=== PATIENT | female | born 1945 | race Caucasian/White ===

== ENCOUNTER → 2017-12-08 10:22 | Outpatient (CLI) | payer OTHER, SELFPAY ==
[2017-12-08 12:25] LABS: Hep C Virus Ab w/Reflex Quant NEGATIVE s/c (NEGATIVE)
== END ==
PROVIDERS: PCP Physician Assistant; Visit Provider Internal Medicine Gastroenterology
DX: Z11.59 Encounter for screening for other viral diseases (principal)
CPT/HCPCS: 36415; 86803

== ENCOUNTER 2018-01-13 08:18 | Day surgery (SDC) | payer OTHER, SELFPAY ==
[2018-01-13] VITALS (9 sets, daily range): BP systolic 143–181; BP diastolic 80–91; PULSE 65–76; RESP 12–17; TEMP 36.2–36.7; O2SAT 96–100; BMI 19.5
[2018-01-13] MEDS: SODIUM CHLORIDE 0.9% 1,000 ML 21 ML IV (09:21)
[2018-01-13] MEDS: MIDAZOLAM 5 MG/5 ML VIAL IV (09:59)
[2018-01-13] MEDS: fentaNYL 250 MCG/5 ML INJ IV (09:59)
--- NOTE | 2018-01-13 10:03 | PM.OP.ENDO ---
Operative Date/Time/Diagnoses Date of procedure: 01/13/18 Time of procedure: 10:03 Pre-op diagnosis: See indication Procedure & Clinicians Study performed: Colonoscopy Indications: Family history of colon cancer. Last colonoscopy 8 years ago. Patient has only been off Plavix for 3-4 days. Surgeon: Sriram Tejeda Procedure Notes Procedure in detail: After informed consent was obtained the patient was placed in the left lateral decubitus position. The video colonoscope was placed in the rectum and slowly advanced to the cecum. Preparation was good. On slow withdrawal the mucosa was carefully examined. The scope was removed and the patient tolerated the procedure well. Blood loss none Complications none Sedation Fentanyl 100 mcg Versed 5 mg IV titration Total sedation time 12 min Findings 1. Normal colonoscopy to cecum without any polyps being seen. 2. Rare scattered sigmoid diverticulosis Patient should have follow-up colonoscopy in 5 years. She may restart her Plavix and the other medications that she is held today.
--- NOTE | 2018-02-03 16:47 | PM.HP.1 ---
History of Present Illness Chief complaint: colonoscopy [id number] Patient History Medical History Essential hypertension (Chronic) Hyperlipidemia (Chronic) Osteoporosis (Chronic) Cerebral aneurysm (Resolved) History of transient cerebral ischemia (Chronic 04/29/16) Obstructive sleep apnea syndrome (Chronic) Diverticulosis of large intestine without hemorrhage (Chronic) Mycobacterium avium complex (Chronic ~06/2015) Cystocele (Resolved 2004) Skin cancer (Resolved) Surgical History History of brain shunt (Resolved 05/2009) Hx of surgical procedure (Resolved 2004) S/P total abdominal hysterectomy and bilateral salpingo-oophorectomy (2004) Family & Social History Social History: household members none Tobacco & Substance use: Smoking Status Former smoker alcohol intake current Meds Home Medications Medication Instructions Recorded Confirmed Type aspirin 81 mg PO QDAY #0 03/07/16 01/25/18 History calcium carbonate [Calci-Chew] 500 mg PO BID #0 03/07/16 01/25/18 History lysine [L-Lysine] 500 mg PO BID #0 03/07/16 01/25/18 History multivitamin [Multiple Vitamins] 1 tab PO QDAY #0 03/07/16 01/25/18 History lisinopril 5 mg PO QDAY #90 tab 04/14/17 01/25/18 Rx alendronate 70 mg PO QWEEK #12 tab 05/04/17 01/25/18 Rx clopidogrel 75 mg PO QDAY #90 tab 05/11/17 01/25/18 Rx GLUCOSAMINE/CHONDROITIN SULF A 1 tab PO QDAY #0 10/14/17 01/25/18 History [Magnesium] 325 mg PO .see instructions #0 10/14/17 01/25/18 History metoprolol tartrate 25 mg tablet 12.5 mg PO ONCE #0 tab 12/02/17 01/25/18 History varicella-zoster glycoE [id number] 0.5 ml IM ONCE #1 each 01/25/18 Rx adj(PF) 50 mcg/0.5 mL IM susp, kit Allergies Allergy/AdvReac Type Severity Reaction Status Date / Time Iodinated Contrast- Oral and Allergy Intermediate HIVES Verified 01/25/18 14:08 IV Dye [IODINATED CONTRAST MEDIA - IV DYE] Sulfa (Sulfonamide Allergy Intermediate HIVES AND Verified 01/25/18 14:08 Antibiotics) HALLUCINATIONS [SULFA (SULFONAMIDE ANTIBIOTICS)] phenytoin [PHENYTOIN] Allergy Unknown PATIENT Verified 01/25/18 14:08 DOESN'T REMEMBER - THE ER TOLD ME I HAD A REACTION Exam Vital Signs (past 8 hours): Oxygen Delivery Method Room Air
== END 2018-01-13 11:17 | disposition home or self-care (01) ==
PROVIDERS: Family Provider Physician Assistant; PCP Physician Assistant; Visit Provider Internal Medicine Gastroenterology
PROC: 0DJD8ZZ Inspection of Lower Intestinal Tract, Via Natural or Artificial Opening Endoscopic (ICD-10-PCS; CPT 45378; principal; 2018-01-13 09:30)
DX: Z12.11 Encounter for screening for malignant neoplasm of colon (principal); Z80.0 Family history of malignant neoplasm of digestive organs; K57.30 Diverticulosis of large intestine without perforation or abscess without bleeding
CPT/HCPCS: G0105; J2250; J3010

== ENCOUNTER → 2018-01-29 07:07 | Outpatient (CLI) | payer OTHER, SELFPAY ==
[2018-01-29 08:22] LABS: Alanine Aminotransferase 23 IU/L (9-52); Albumin 4.4 g/dL (3.5-5.0); Albumin Globulin Ratio 1.7 (1.0-2.8); Alkaline Phosphatase 74 U/L (38-126); Aspartate Aminotransferase 28 IU/L (14-36); BUN Creatinine Ratio 28.3 (6-22); Bilirubin Total 0.5 mg/dL (0.2-1.3); Blood Urea Nitrogen 17 mg/dL (7-17); Calcium 9.5 mg/dL (8.4-10.2); Carbon Dioxide 29 mmol/L (22-32); Chloride 96 mmol/L (98-107); Cholesterol 210 mg/dL (140-199); Estimated Glomerular Filt Rate > 60.0 mL/min (>60); Globulin 2.6 g/dL (1.7-4.1); Glucose 98 mg/dL (80-110); HDL Cholesterol 53 mg/dL (40-60); HEMOLYSIS < 15 (0-50); LDL Cholesterol Calculated 137 mg/dL (<100); Sodium 135 mmol/L (137-145); Triglycerides 100 mg/dL (35-150)
[2018-01-29 09:05] LABS: Microalbumi Creatinin Ratio Ur 7.2 ug/mg CR (<30); Microalbumin Urine Random 0.9 mg/dL (0-1.6)
[2018-01-29 09:16] LABS: Vitamin D 25 Hydroxy (D3) 56.5 ng/mL (30.0-100.0)
== END ==
PROVIDERS: PCP Physician Assistant; Visit Provider Physician Assistant
DX: E78.5 Hyperlipidemia, unspecified (principal); I10 Essential (primary) hypertension; M81.0 Age-related osteoporosis without current pathological fracture
CPT/HCPCS: 36415; 80053; 80061; 82043; 82306; 82570

== ENCOUNTER → 2018-07-02 09:31 | Outpatient (CLI) | payer OTHER, SELFPAY ==
[2018-07-02 10:59] LABS: Alanine Aminotransferase 29 IU/L (9-52); Albumin 4.4 g/dL (3.5-5.0); Albumin Globulin Ratio 1.7 (1.0-2.8); Alkaline Phosphatase 63 U/L (38-126); Aspartate Aminotransferase 28 IU/L (14-36); Bilirubin Total 0.6 mg/dL (0.2-1.3); Blood Urea Nitrogen 15 mg/dL (7-17); Calcium 9.1 mg/dL (8.4-10.2); Carbon Dioxide 26 mmol/L (22-32); Chloride 96 mmol/L (98-107); Cholesterol 201 mg/dL (140-199); Estimated Glomerular Filt Rate > 60.0 mL/min (>60); Globulin 2.6 g/dL (1.7-4.1); Glucose 90 mg/dL (80-110); HDL Cholesterol 61 mg/dL (40-60); HEMOLYSIS < 15 (0-50); LDL Cholesterol Calculated 126 mg/dL (<100); Potassium 4.2 mmol/L (3.4-5.1); Sodium 132 mmol/L (137-145); Triglycerides 72 mg/dL (35-150)
[2018-07-02 11:07] LABS: Creatinine Urine Random 91.2 mg/dL
[2018-07-02 11:12] LABS: Microalbumi Creatinin Ratio Ur 6.5 ug/mg CR (<30); Microalbumin Urine Random < 0.6 mg/dL (0-1.6)
== END ==
PROVIDERS: PCP Physician Assistant; Visit Provider Physician Assistant
DX: E78.5 Hyperlipidemia, unspecified (principal); I10 Essential (primary) hypertension
CPT/HCPCS: 36415; 80053; 80061; 82043; 82570

== ENCOUNTER 2018-07-22 12:42 | Emergency (ER) | payer OTHER, SELFPAY ==
[2018-07-22] VITALS (17 sets, daily range): BP systolic 150–196; BP diastolic 73–102; PULSE 82–107; RESP 14–20; TEMP 36.3; O2SAT 93–100; BMI 19.5
[2018-07-22] MEDS: ONDANSETRON 4 MG/2 ML INJ IV (12:39)
--- NOTE | 2018-07-22 12:42 | DI.CT.S_ITS ---
PROCEDURE: CT CERVICAL SPINE WO CON INDICATIONS: trauma TECHNIQUE: Noncontrast 3 mm thick sections acquired from the skull base to the T4 level. Sagittal and coronal reformats were then constructed. For radiation dose reduction, the following was used: automated exposure control, adjustment of mA and/or kV according to patient size. COMPARISON: None. FINDINGS: Image quality: Excellent. Bones: There is mild compression fracture of T3, which could be acute. Mild loss of vertebral body height at C4 and C5 is likely chronic. There is grade 1 anterolisthesis of C4 on C5 and C5 on C6. Degenerative disc disease is present, severe at C3-C4, moderate C5-C6 and C6-C7. There is bilateral uncovertebral hypertrophy, severe at C5-C6 and C6-C7 bilaterally. Visualized superior ribs are intact. Soft tissues: Prevertebral soft tissues are normal in thickness. No paravertebral hematomas. No apical pneumothoraces. IMPRESSION: 1. Mild compression fracture of T3, which could be acute. 2. Mild old compression fracture of C4 and C5. 3. Degenerative disc and facet disease as described. Dictated by: Janna Dominguez M.D. on 07/22/2018 at 13:33 Approved by: Janna Dominguez M.D. on 07/22/2018 at 13:37
--- NOTE | 2018-07-22 12:47 | ED.FALL ---
HPI - Fall General Chief Complaint: Fall Stated Complaint: Fall Time Seen by Provider: 07/22/18 12:47 Source: patient Mode of arrival: ambulatory Limitations: no limitations History of Present Illness HPI Narrative: 73-year-old female nonsmoker with history of recent fall with head injury on Plavix presents to the emergency department by EMS for evaluation of worsening headache with persistent vomiting since her fall. This morning she was out walking her dog and slipped on the ice and struck her head. She denies any other injury. She denies any loss of consciousness or anticoagulation. 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 She denies any back or extremity pain. MD complaint: fall Onset (ago): hour(s) Fall from: standing Fall witnessed: no Place fall occurred: home Loss of consciousness: none Prolonged down time: no Symptoms prior to fall: none Context: tripped/slipped Location of injury: head Severity: moderate Associated symptoms (after fall): denies Related Data Allergies Allergy/AdvReac Type Severity Reaction Status Date / Time Sulfa (Sulfonamide Allergy Verified 07/22/18 13:53 Antibiotics) Review of Systems Constitutional Denies chills, Denies fever(s), Denies lethargy and Denies weakness Eyes Denies change in vision, Denies eye discharge, Denies irritation and Denies loss of vision ENT Ears, Nose, Mouth, and Throat: Denies change in voice, Reports neck pain and Denies sore throat Cardiovascular Denies chest pain, Denies irregular heart rhythm, Denies lightheadedness, Denies palpitations, Denies dyspnea, Denies dyspnea on exertion and Denies orthopnea Respiratory Denies cough, Denies dyspnea, Denies dyspnea on exertion and Denies wheezing Gastrointestinal Gastrointestinal: Denies abdominal pain, Denies change in bowel habits, Denies diarrhea, Reports nausea and Reports vomiting Musculoskeletal Reports neck pain Integumentary/Breasts Denies pruritus, Denies erythema, Denies rash and Denies wounds Neurologic Reports confusion, Denies loss of vision and Denies weakness Psychiatric Denies anxiety, Reports confusion, Denies depression, Denies homicidal ideation and Denies suicidal ideation Endocrine Denies palpitations Hematologic/Lymphatic Denies easy bruising Allergic/Immunologic Denies wheezing Exam Narrative Exam Narrative: GENERAL: 73-year-old female in obvious distress, eyes closed complaining of headache, arousable to voice HEAD: Occipital tenderness, no fracture or laceration EYES: Pupils equal round and reactive. Extraocular motions intact. No scleral icterus. No injection or drainage. ENT: Nose without bleeding, purulent drainage or septal hematoma. Throat without erythema, tonsillar hypertrophy or exudate. Uvula midline. Airway patent. NECK: Trachea midline. No JVD or lymphadenopathy. Supple, nontender, no meningeal signs. CARDIOVASCULAR: Regular rate and rhythm without murmurs, gallops, or rubs. RESPIRATORY: Clear to auscultation. Breath sounds equal bilaterally. No wheezes, rales, or rhonchi. GASTROINTESTINAL: Abdomen soft, non-tender, nondistended. No hepato-splenomegaly, or palpable masses. No guarding. EXTREMITIES: No clubbing, cyanosis, or edema. No joint tenderness, effusion, or edema noted. BACK: Nontender without deformity or crepitance. No flank tenderness. NEURO: AOx3. SKIN: No rash or erythema. Initial Vital Signs Initial Vital Signs: Vital Signs Temperature 97.4 F L 07/22/18 12:39 Pulse Rate 88 07/22/18 12:39 Respiratory Rate 16 07/22/18 12:39 Blood Pressure 185/88 H 07/22/18 12:39 Pulse Oximetry 98 07/22/18 12:39 Procedures Intubation Time out performed: Yes sedative: Etomidate Mg Given: 13 paralytic: Rocuronium Mg Given: 45 Laryngoscope: other (Glidescope) Assist Device Used: Bougie ET Tube Size: 7.5 ET Tube Uncuffed: Yes Tube Secured Depth (cm): 22 Tube Secured Location: teeth Tube Placement Confirmation: Visualized tube passing through cords, Equal breath sounds bilaterally, No breath sounds over epigastrium and Confirmation by capnometry Patient Tolerated Procedure: Well Intubation Complications: none Scores GCS Mel coma scale eye opening: To sound [place] coma scale verbal response: Confused [place] coma scale motor response: Obey commands Mel coma scale total score: 13 Course Course Narrative: Skylar [phone] Angelique Puga [phone] Orders Ordered: ED Orders 07/22/18 12:35 Basic Metabolic Panel Stat Complete Blood Count AUTO DIFF Stat Partial Thromboplastin Time Stat Prothrombin Time INR Stat 07/22/18 12:42 CT head/brain wo con Stat 07/22/18 12:53 XR chest 1V Stat XR pelvis 1-2V Stat EKG-12 Lead Stat 07/22/18 13:07 CT cervical spine wo con Stat 07/22/18 14:23 XR chest 1V Stat Nicardipine HCl 25 mg/ Sodium (Chloride) 250 mls @ 50 mls/hr IV TITRATE BREN; Protocol Last Titration: 07/22/18 13:42 Dose: 0 mg/hr, 0 mls/hr Admin: 07/22/18 13:35 Dose: 5 mg/hr, 50 mls/hr Ondansetron HCl (Zofran) 4 mg IV Q4HR PRN PRN Reason: Nausea And Vomiting Last Admin: 07/22/18 12:39 Dose: 4 mg Discontinued Medications Levetiracetam 1,000 mg/ Sodium (Chloride) 110 mls @ 440 mls/hr IV NOW ONE Stop: 07/22/18 13:22 Last Infusion: 07/22/18 13:53 Dose: 0 mls/hr Admin: 07/22/18 13:38 Dose: 440 mls/hr Reevaluation(s) Reevaluation #1: called to see patient with change in mental status, possible seizure activity but rapid return to baseline (no post ictal) patient to Trauma [place]. [place], nicardipine ordered and plan to intubate. Images pushed, [place] [facility] Time: 13:32 Consultations Consultation #1: Dr. Valentin [place] consulted. Discussed RSI meds (etomidate vs. ketamine: recommend etomidate for ICP), hypertonic saline or mannitol (will refer to Neurosurg), also recommend holding nicardipine until after intubation with goal SBP 160ish Vital Signs - 8 hr 07/22/18 12:39 07/22/18 13:13 07/22/18 13:18 Temperature 97.4 F L Pulse Rate 88 84 92 H Respiratory Rate 16 17 18 Blood Pressure 185/88 H Blood Pressure [Left Arm] 178/81 H 178/81 H Pulse Oximetry 98 100 100 07/22/18 13:35 07/22/18 13:42 07/22/18 13:54 Temperature Pulse Rate 94 H 92 H Respiratory Rate 18 15 Blood Pressure Blood Pressure [Left Arm] 185/90 H 162/85 H 150/73 H Pulse Oximetry 94 93 07/22/18 14:00 07/22/18 14:33 Temperature Pulse Rate 101 H 94 H Respiratory Rate 18 14 Blood Pressure Blood Pressure [Left Arm] 163/79 H 189/101 H Pulse Oximetry 100 100 - Fall Lab Data Result diagrams: 07/22/18 12:35 07/22/18 12:35 Lab Results 07/22/18 07/22/18 07/22/18 Range/Units 12:35 12:35 12:35 WBC 8.6 (4.5-11.0) X10^3/uL RBC 4.99 (4.0-5.2) X10^6/uL Hgb 15.1 (12.0-16.0) g/dL Hct 44.6 (36-46) % MCV 89.4 (80-100) fL MCH 30.3 (26-34) PG MCHC 33.9 (30-36) % RDW 13.5 (11.6-14.8) % Plt Count 262 (150-400) X10^3/uL Neut % (Auto) 71.2 (50-75) % Lymph % (Auto) 20.5 L (25-40) % [place] % (Auto) 7.0 (3-14) % Eos % (Auto) 0.5 L (2-4) % Baso % (Auto) 0.8 (0-2) % Neut # (Auto) 6100 (8558-9513) /uL Lymph # (Auto) 1800 (6711-9151) /uL [place] # (Auto) 600 (0-900) /uL Eos # (Auto) 0 (0-450) /uL Baso # (Auto) 100 (0-100) /uL PT 10.9 (10.1-12.7) SECONDS INR 1.0 (0.9-1.3) APTT 25 L (26.4-36.2) SECONDS Sodium 133 L (137-145) mmol/L Potassium 3.5 (3.4-5.1) mmol/L Chloride 96 L (98-107) mmol/L Carbon Dioxide 22 (22-32) mmol/L BUN 18 H (7-17) mg/dL Creatinine 0.60 (0.52-1.04) mg/dL Estimated GFR > 60.0 (>60) mL/min BUN/Creatinine Ratio 30.0 H (6-22) Glucose 127 H (80-110) mg/dL Calcium 9.8 (8.4-10.2) mg/dL Imaging Data CT scan - head: Radiologist's impression: Shelley Pires 73 F [address] [address] [address] Scan Report Signed Patient: Shelley PiresMR#: [id number] : 5Acct:[id number] Age/Sex: 73 / FDate of Service: 07/22/18 Loc: ED Accession Number: [id number] Procedure: CT cervical spine wo con Ordering Provider: Winston Anaya D.O. PROCEDURE: CT HEAD/BRAIN WO CON INDICATIONS: trauma TECHNIQUE: Noncontrast 4.5 mm thick angled axial sections acquired from the foramen magnum to the vertex, with coronal and sagittal reformats. For radiation dose reduction, the following was used: automated exposure control, adjustment of mA and/or kV according to patient size. COMPARISON: [facility], CT, CT CERVICAL SPINE WO CON, 07/22/2018, 12:35. FINDINGS: Image quality: Excellent. CSF spaces: A large acute epidural hematoma is present over the right frontal lobe measuring 2.7 cm in thickness and is 6.6 cm longitudinally. In addition, acute subcutaneous hematoma is seen over the right cerebral convexity, measuring up to 11 mm. subdural blood is also present within the interhemispheric fissure, right sylvian fissure and along the right tentorium. There is mass effect of the right hemisphere with 8mm midline shift. Basal cisterns are partially effaced. There is a ventricular shunt catheter entering through the left frontal area with the tip near foramen of Hirsch. There is effacement of lateral ventricles, suggesting over shunting. Brain: No intracranial masses. There is mild cerebral volume loss for age, with resultant ventricular and sulcal prominence. There are periventricular and deep white matter chronic small vessel ischemic changes. Skull and face: Postsurgical changes are noted in right frontal ovarian and within the suprasellar cistern. No acute skull fracture is identified. Sinuses: Visualized sinuses and mastoids are clear. IMPRESSION: 1. A large acute epidural hematoma in the right frontal area. 2. Acute subdural hematoma over the right convexity measuring up to 11 mm. Subdural blood is also present within the interhemispheric fissure, right sylvian fissure and tentorium. 3. There is mass effect and 8 mm leftward midline shift. 4. There is a ventricular shunt catheter entering through the right frontal region. There is effacement of cerebral ventricles suggesting over shunting. Recommend clinical correlation. The result was discussed with Dr. Rubi in ER on 07/22/2018 at 1320 hours. Dictated by: Janna Dominguez M.D. on 07/22/2018 at 13:19 Approved by: Janna Dominguez M.D. on 07/22/2018 at 13:33 CT C Spine: Radiologist's impression: [place] [address] CT Scan Report Signed Patient: Shelley PiresMR#: [id number] : 5Acct:[id number] Age/Sex: 73 / FDate of Service: 07/22/18 Loc: ED Accession Number: [id number] Procedure: CT head/brain wo con Ordering Provider: Winston Anaya D.O. PROCEDURE: CT CERVICAL SPINE WO CON INDICATIONS: trauma TECHNIQUE: Noncontrast 3 mm thick sections acquired from the skull base to the T4 level. Sagittal and coronal reformats were then constructed. For radiation dose reduction, the following was used: automated exposure control, adjustment of mA and/or kV according to patient size. COMPARISON: None. FINDINGS: Image quality: Excellent. Bones: There is mild compression fracture of T3, which could be acute. Mild loss of vertebral body height at C4 and C5 is likely chronic. There is grade 1 anterolisthesis of C4 on C5 and C5 on C6. Degenerative disc disease is present, severe at C3-C4, moderate C5-C6 and C6-C7. There is bilateral uncovertebral hypertrophy, severe at C5-C6 and C6-C7 bilaterally. Visualized superior ribs are intact. Soft tissues: Prevertebral soft tissues are normal in thickness. No paravertebral hematomas. No apical pneumothoraces. IMPRESSION: 1. Mild compression fracture of T3, which could be acute. 2. Mild old compression fracture of C4 and C5. 3. Degenerative disc and facet disease as described. Dictated by: Janna Dominguez M.D. on 07/22/2018 at 13:33 Critical Care Time Critical Care Time: Yes Total Critical Care Time: 30 Attestation: The high probability of a clinically significant, sudden or life threatening deterioration of the [neurologic] system(s) required my full and direct attention, intervention and personal management. The aggregate critical care time was [30] minutes. This time is in addition to time spent performing reported procedures but includes the following: [x] Data Review and interpretation [x] Patient assessment and monitoring of vital signs [x] Documentation [x] Medication orders and management Discharge Plan Departure Patient Disposition: [facility] Clinical Impression: Epidural hematoma
--- NOTE | 2018-07-22 12:53 | DI.RAD.S_ITS ---
PROCEDURE: XR CHEST 1V INDICATIONS: fall TECHNIQUE: One view of the chest was acquired. COMPARISON: None. FINDINGS: Surgical changes and devices: Tubing of a probable ventriculoperitoneal shunt overlies the left hemithorax.. Lungs and pleura: Lungs are hyperinflated but clear. No pleural effusions or pneumothorax. Mediastinum: Mediastinal contours appear normal. Heart size is normal. Bones and chest wall: No suspicious bony lesions. Overlying soft tissues appear unremarkable. IMPRESSION: 1. No evidence of acute trauma to the chest. 2. Mild pulmonary hyperinflation. 3. IT SYSTEMS ADMINISTRATOR shunt in place. Dictated by: Jaki Salvador M.D. on 07/22/2018 at 13:12 Approved by: Jaki Salvador M.D. on 07/22/2018 at 13:13
--- NOTE | 2018-07-22 12:53 | DI.RAD.S_ITS ---
PROCEDURE: XR PELVIS 1-2V INDICATIONS: fall with pain TECHNIQUE: Single view(s) of the pelvis acquired. COMPARISON: [facility], CR, XR CHEST 1V, 07/22/2018, 12:58. FINDINGS: Bones: No fractures or dislocations. No suspicious bony lesions. Moderate degenerative changes at the right L5-S1 facet joint. Soft tissues: Tubing of the CHIROPRACTIC NEUROLOGIST shunt is coiled loosely in the pelvis. Visualized bowel gas pattern is normal. No suspicious soft tissue calcifications. IMPRESSION: 1. No radiographic evidence of acute trauma to the pelvis. 2. CHIROPRACTIC NEUROLOGIST shunt tubing in expected position. Dictated by: Jaki Salvador M.D. on 07/22/2018 at 13:14 Approved by: Jaki Salvador M.D. on 07/22/2018 at 13:15
[2018-07-22 13:03] LABS: Add Manual Diff / Slide Review NO; Basophils Absolute Auto 100 /uL (0-100); Basophils Percent Auto 0.8 % (0-2); Eosinophils Absolute Auto 0 /uL (0-450); Eosinophils Percent Auto 0.5 % (2-4); Hematocrit 44.6 % (36-46); Hemoglobin 15.1 g/dL (12.0-16.0); Lymphocytes Absolute Auto 1800 /uL (1100-4500); Lymphocytes Percent Auto 20.5 % (25-40); Mean Corpuscular HGB Conc 33.9 % (30-36); Mean Corpuscular Hemoglobin 30.3 PG (26-34); Mean Corpuscular Volume 89.4 fL (80-100); Monocytes Absolute Auto 600 /uL (0-900); Neutrophils Absolute Auto 6100 /uL (1500-7000); Neutrophils Percent Auto 71.2 % (50-75); Platelet Count 262 X10^3/uL (150-400); Red Blood Cell Count 4.99 X10^6/uL (4.0-5.2); Red Cell Distribution Width 13.5 % (11.6-14.8); White Blood Cell Count 8.6 X10^3/uL (4.5-11.0)
--- NOTE | 2018-07-22 13:07 | DI.CT.S_ITS ---
PROCEDURE: CT HEAD/BRAIN WO CON INDICATIONS: trauma TECHNIQUE: Noncontrast 4.5 mm thick angled axial sections acquired from the foramen magnum to the vertex, with coronal and sagittal reformats. For radiation dose reduction, the following was used: automated exposure control, adjustment of mA and/or kV according to patient size. COMPARISON: [facility], CT, CT CERVICAL SPINE WO CON, 07/22/2018, 12:35. FINDINGS: Image quality: Excellent. CSF spaces: A large acute epidural hematoma is present over the right frontal lobe measuring 2.7 cm in thickness and is 6.6 cm longitudinally. In addition, acute subcutaneous hematoma is seen over the right cerebral convexity, measuring up to 11 mm. subdural blood is also present within the interhemispheric fissure, right sylvian fissure and along the right tentorium. There is mass effect of the right hemisphere with 8mm midline shift. Basal cisterns are partially effaced. There is a ventricular shunt catheter entering through the left frontal area with the tip near foramen of Hirsch. There is effacement of lateral ventricles, suggesting over shunting. Brain: No intracranial masses. There is mild cerebral volume loss for age, with resultant ventricular and sulcal prominence. There are periventricular and deep white matter chronic small vessel ischemic changes. Skull and face: Postsurgical changes are noted in right frontal ovarian and within the suprasellar cistern. No acute skull fracture is identified. Sinuses: Visualized sinuses and mastoids are clear. IMPRESSION: 1. A large acute epidural hematoma in the right frontal area. 2. Acute subdural hematoma over the right convexity measuring up to 11 mm. Subdural blood is also present within the interhemispheric fissure, right sylvian fissure and tentorium. 3. There is mass effect and 8 mm leftward midline shift. 4. There is a ventricular shunt catheter entering through the right frontal region. There is effacement of cerebral ventricles suggesting over shunting. Recommend clinical correlation. The result was discussed with Dr. Rubi in ER on 07/22/2018 at 1320 hours. Dictated by: Janna Dominguez M.D. on 07/22/2018 at 13:19 Approved by: Janna Dominguez M.D. on 07/22/2018 at 13:33
[2018-07-22 13:10] LABS: Prothrombin Time 10.9 SECONDS (10.1-12.7)
[2018-07-22 13:13] LABS: PTT Partial Thromboplastin Tim 25 SECONDS (26.4-36.2)
[2018-07-22 13:14] LABS: Blood Urea Nitrogen 18 mg/dL (7-17); Calcium 9.8 mg/dL (8.4-10.2); Carbon Dioxide 22 mmol/L (22-32); Chloride 96 mmol/L (98-107); Estimated Glomerular Filt Rate > 60.0 mL/min (>60); Glucose 127 mg/dL (80-110); HEMOLYSIS 48 (0-50); Potassium 3.5 mmol/L (3.4-5.1); Sodium 133 mmol/L (137-145)
--- NOTE | 2018-07-22 13:17 | PC.NURSE ---
cervical collar applied, moving all ext , post application, then to ct. pt continue to have nausea, , repeat zofran 4mg iv given at 1248.
--- NOTE | 2018-07-22 13:18 | PC.NURSE ---
remain alert and awake, report of frontal headache, with nausea, denies visual changes, moving all ext.
--- NOTE | 2018-07-22 13:29 | ED_ITS ---
HPI - Fall General Chief Complaint: Fall Stated Complaint: Fall Time Seen by Provider: 07/22/18 12:47 Source: patient Mode of arrival: ambulatory Limitations: no limitations History of Present Illness HPI Narrative: 73-year-old female nonsmoker with history of recent fall with head injury on Plavix presents to the emergency department by EMS for evaluation of worsening headache with persistent vomiting since her fall. This morning she was out walking her dog and slipped on the ice and struck her head. She denies any other injury. She denies any loss of consciousness or anticoagulation. 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 She denies any back or extremity pain. MD complaint: fall Onset (ago): hour(s) Fall from: standing Fall witnessed: no Place fall occurred: home Loss of consciousness: none Prolonged down time: no Symptoms prior to fall: none Context: tripped/slipped Location of injury: head Severity: moderate Associated symptoms (after fall): denies Related Data Allergies Allergy/AdvReac Type Severity Reaction Status Date / Time Sulfa (Sulfonamide Allergy Verified 07/22/18 13:53 Antibiotics) Review of Systems Constitutional Denies chills, Denies fever(s), Denies lethargy and Denies weakness Eyes Denies change in vision, Denies eye discharge, Denies irritation and Denies loss of vision ENT Ears, Nose, Mouth, and Throat: Denies change in voice, Reports neck pain and Denies sore throat Cardiovascular Denies chest pain, Denies irregular heart rhythm, Denies lightheadedness, Denies palpitations, Denies dyspnea, Denies dyspnea on exertion and Denies orthopnea Respiratory Denies cough, Denies dyspnea, Denies dyspnea on exertion and Denies wheezing Gastrointestinal Gastrointestinal: Denies abdominal pain, Denies change in bowel habits, Denies diarrhea, Reports nausea and Reports vomiting Musculoskeletal Reports neck pain Integumentary/Breasts Denies pruritus, Denies erythema, Denies rash and Denies wounds Neurologic Reports confusion, Denies loss of vision and Denies weakness Psychiatric Denies anxiety, Reports confusion, Denies depression, Denies homicidal ideation and Denies suicidal ideation Endocrine Denies palpitations Hematologic/Lymphatic Denies easy bruising Allergic/Immunologic Denies wheezing Exam Narrative Exam Narrative: GENERAL: 73-year-old female in obvious distress, eyes closed complaining of headache, arousable to voice HEAD: Occipital tenderness, no fracture or laceration EYES: Pupils equal round and reactive. Extraocular motions intact. No scleral icterus. No injection or drainage. ENT: Nose without bleeding, purulent drainage or septal hematoma. Throat without erythema, tonsillar hypertrophy or exudate. Uvula midline. Airway patent. NECK: Trachea midline. No JVD or lymphadenopathy. Supple, nontender, no meningeal signs. CARDIOVASCULAR: Regular rate and rhythm without murmurs, gallops, or rubs. RESPIRATORY: Clear to auscultation. Breath sounds equal bilaterally. No wheezes, rales, or rhonchi. GASTROINTESTINAL: Abdomen soft, non-tender, nondistended. No hepato- splenomegaly, or palpable masses. No guarding. EXTREMITIES: No clubbing, cyanosis, or edema. No joint tenderness, effusion, or edema noted. BACK: Nontender without deformity or crepitance. No flank tenderness. NEURO: AOx3. SKIN: No rash or erythema. Initial Vital Signs Initial Vital Signs: Vital Signs Temperature 97.4 F L 07/22/18 12:39 Pulse Rate 88 07/22/18 12:39 Respiratory Rate 16 07/22/18 12:39 Blood Pressure 185/88 H 07/22/18 12:39 Pulse Oximetry 98 07/22/18 12:39 Procedures Intubation Time out performed: Yes sedative: Etomidate Mg Given: 13 paralytic: Rocuronium Mg Given: 45 Laryngoscope: other (Glidescope) Assist Device Used: Bougie ET Tube Size: 7.5 ET Tube Uncuffed: Yes Tube Secured Depth (cm): 22 Tube Secured Location: teeth Tube Placement Confirmation: Visualized tube passing through cords, Equal breath sounds bilaterally, No breath sounds over epigastrium and Confirmation by capnometry Patient Tolerated Procedure: Well Intubation Complications: none Scores GCS Mel coma scale eye opening: To sound Mel coma scale verbal response: Confused Mel coma scale motor response: Obey commands Raphine coma scale total score: 13 Course Course Narrative: Skylar [phone] Angelique Puga [phone] Orders Ordered: ED Orders 07/22/18 12:35 Basic Metabolic Panel Stat Complete Blood Count AUTO DIFF Stat Partial Thromboplastin Time Stat Prothrombin Time INR Stat 07/22/18 12:42 CT head/brain wo con Stat 07/22/18 12:53 XR chest 1V Stat XR pelvis 1-2V Stat EKG-12 Lead Stat 07/22/18 13:07 CT cervical spine wo con Stat 07/22/18 14:23 XR chest 1V Stat Nicardipine HCl 25 mg/ Sodium (Chloride) 250 mls @ 50 mls/hr IV TITRATE BREN; Protocol Last Titration: 07/22/18 13:42 Dose: 0 mg/hr, 0 mls/hr Admin: 07/22/18 13:35 Dose: 5 mg/hr, 50 mls/hr Ondansetron HCl (Zofran) 4 mg IV Q4HR PRN PRN Reason: Nausea And Vomiting Last Admin: 07/22/18 12:39 Dose: 4 mg Discontinued Medications Levetiracetam 1,000 mg/ Sodium (Chloride) 110 mls @ 440 mls/hr IV NOW ONE Stop: 07/22/18 13:22 Last Infusion: 07/22/18 13:53 Dose: 0 mls/hr Admin: 07/22/18 13:38 Dose: 440 mls/hr Reevaluation(s) Reevaluation #1: called to see patient with change in mental status, possible seizure activity but rapid return to baseline (no post ictal) patient to Trauma [place]. [place], nicardipine ordered and plan to intubate. Images pushed, [facility] Time: 13:32 Consultations Consultation #1: Dr. Valentin ([facility]) consulted. Discussed RSI meds (etomidate vs. ketamine: recommend etomidate for ICP), hypertonic saline or mannitol (will refer to Neurosurg), also recommend holding nicardipine until after intubation with goal SBP 160ish Vital Signs - 8 hr 07/22/18 12:39 07/22/18 13:13 07/22/18 13:18 Temperature 97.4 F L Pulse Rate 88 84 92 H Respiratory Rate 16 17 18 Blood Pressure 185/88 H Blood Pressure [Left Arm] 178/81 H 178/81 H Pulse Oximetry 98 100 100 07/22/18 13:35 07/22/18 13:42 07/22/18 13:54 Temperature Pulse Rate 94 H 92 H Respiratory Rate 18 15 Blood Pressure Blood Pressure [Left Arm] 185/90 H 162/85 H 150/73 H Pulse Oximetry 94 93 07/22/18 14:00 07/22/18 14:33 Temperature Pulse Rate 101 H 94 H Respiratory Rate 18 14 Blood Pressure Blood Pressure [Left Arm] 163/79 H 189/101 H Pulse Oximetry 100 100 - Fall Lab Data Result diagrams: 07/22/18 12:35 07/22/18 12:35 Lab Results 07/22/18 07/22/18 07/22/18 Range/Units 12:35 12:35 12:35 WBC 8.6 (4.5-11.0) X10^3/uL RBC 4.99 (4.0-5.2) X10^6/uL Hgb 15.1 (12.0-16.0) g/dL Hct 44.6 (36-46) % MCV 89.4 (80-100) fL MCH 30.3 (26-34) PG MCHC 33.9 (30-36) % RDW 13.5 (11.6-14.8) % Plt Count 262 (150-400) X10^3/uL Neut % (Auto) 71.2 (50-75) % Lymph % (Auto) 20.5 L (25-40) % Vernon % (Auto) 7.0 (3-14) % Eos % (Auto) 0.5 L (2-4) % Baso % (Auto) 0.8 (0-2) % Neut # (Auto) 6100 (8182-4597) /uL Lymph # (Auto) 1800 (9801-1740) /uL Vernon # (Auto) 600 (0-900) /uL Eos # (Auto) 0 (0-450) /uL Baso # (Auto) 100 (0-100) /uL PT 10.9 (10.1-12.7) SECONDS INR 1.0 (0.9-1.3) APTT 25 L (26.4-36.2) SECONDS Sodium 133 L (137-145) mmol/L Potassium 3.5 (3.4-5.1) mmol/L Chloride 96 L (98-107) mmol/L Carbon Dioxide 22 (22-32) mmol/L BUN 18 H (7-17) mg/dL Creatinine 0.60 (0.52-1.04) mg/dL Estimated GFR > 60.0 (>60) mL/min BUN/Creatinine Ratio 30.0 H (6-22) Glucose 127 H (80-110) mg/dL Calcium 9.8 (8.4-10.2) mg/dL Imaging Data CT scan - head: Radiologist's impression: Shelley Pires 73 F [address] [address] [address] Scan Report Signed Patient: Shelley PiresMR#: [id number] : 5Acct:[id number] Age/Sex: 73 / FDate of Service: 07/22/18 Loc: ED Accession Number: [id number] Procedure: CT cervical spine wo con Ordering Provider: Winston Anaya D.O. PROCEDURE: CT HEAD/BRAIN WO CON INDICATIONS: trauma TECHNIQUE: Noncontrast 4.5 mm thick angled axial sections acquired from the foramen magnum to the vertex, with coronal and sagittal reformats. For radiation dose reduction, the following was used: automated exposure control, adjustment of mA and/or kV according to patient size. COMPARISON: [facility], CT, CT CERVICAL SPINE WO CON, 07/22/2018, 12:35. FINDINGS: Image quality: Excellent. CSF spaces: A large acute epidural hematoma is present over the right frontal lobe measuring 2.7 cm in thickness and is 6.6 cm longitudinally. In addition, acute subcutaneous hematoma is seen over the right cerebral convexity, measuring up to 11 mm. subdural blood is also present within the interhemispheric fissure, right sylvian fissure and along the right tentorium. There is mass effect of the right hemisphere with 8mm midline shift. Basal cisterns are partially effaced. There is a ventricular shunt catheter entering through the left frontal area with the tip near foramen of Hirsch. There is effacement of lateral ventricles, suggesting over shunting. Brain: No intracranial masses. There is mild cerebral volume loss for age, with resultant ventricular and sulcal prominence. There are periventricular and deep white matter chronic small vessel ischemic changes. Skull and face: Postsurgical changes are noted in right frontal ovarian and within the suprasellar cistern. No acute skull fracture is identified. Sinuses: Visualized sinuses and mastoids are clear. IMPRESSION: 1. A large acute epidural hematoma in the right frontal area. 2. Acute subdural hematoma over the right convexity measuring up to 11 mm. Subdural blood is also present within the interhemispheric fissure, right sylvian fissure and tentorium. 3. There is mass effect and 8 mm leftward midline shift. 4. There is a ventricular shunt catheter entering through the right frontal region. There is effacement of cerebral ventricles suggesting over shunting. Recommend clinical correlation. The result was discussed with Dr. Rubi in ER on 07/22/2018 at 1320 hours. Dictated by: Janna Dominguez M.D. on 07/22/2018 at 13:19 Approved by: Janna Dominguez M.D. on 07/22/2018 at 13:33 CT C Spine: Radiologist's impression: [place] [address] CT Scan Report Signed Patient: Shelley PiresMR#: [id number] : 5Acct:[id number] Age/Sex: 73 / FDate of Service: 07/22/18 Loc: ED Accession Number: [id number] Procedure: CT head/brain wo con Ordering Provider: Winston Anaya D.O. PROCEDURE: CT CERVICAL SPINE WO CON INDICATIONS: trauma TECHNIQUE: Noncontrast 3 mm thick sections acquired from the skull base to the T4 level. Sagittal and coronal reformats were then constructed. For radiation dose reduction, the following was used: automated exposure control, adjustment of mA and/or kV according to p atient size. COMPARISON: None. FINDINGS: Image quality: Excellent. Bones: There is mild compression fracture of T3, which could be acute. Mild loss of vertebral body height at C4 and C5 is likely chronic. There is grade 1 anterolisthesis of C4 on C5 and C5 on C6. Degenerative disc disease is present, severe at C3-C4, moderate C5-C6 and C6-C7. There is bilateral uncovertebral hypertrophy, severe at C5-C6 and C6-C7 bilaterally. Visualized superior ribs are intact. Soft tissues: Prevertebral soft tissues are normal in thickness. No paravertebral hematomas. No apical pneumothoraces. IMPRESSION: 1. Mild compression fracture of T3, which could be acute. 2. Mild old compression fracture of C4 and C5. 3. Degenerative disc and facet disease as described. Dictated by: Janna Dominguez M.D. on 07/22/2018 at 13:33 Critical Care Time Critical Care Time: Yes Total Critical Care Time: 30 Attestation: The high probability of a clinically significant, sudden or life threatening deterioration of the [neurologic] system(s) required my full and direct attention, intervention and personal management. The aggregate critical care time was [30] minutes. This time is in addition to time spent performing reported procedures but includes the following: [x] Data Review and interpretation [x] Patient assessment and monitoring of vital signs [x] Documentation [x] Medication orders and management Discharge Plan Departure Patient Disposition: [facility] Clinical Impression: Epidural hematoma
[2018-07-22] MEDS: NICARDIPINE 25 MG in SODIUM CHLORIDE 0.9% 240 ML 50 ML IV (13:35)
[2018-07-22] MEDS: levETIRAcetam 1,000 MG in SODIUM CHLORIDE 0.9% 100 ML 440 ML IV (13:38)
[2018-07-22] MEDS: ONDANSETRON 8 MG in SODIUM CHLORIDE 0.9% 50 ML 216 ML IV (13:50)
[2018-07-22] MEDS: ROCURONIUM 50 MG/5 ML VIAL 45 MG IV (14:00)
[2018-07-22] MEDS: ETOMIDATE 2 MG/ML VIAL 13.6 MG IV (14:00)
--- NOTE | 2018-07-22 14:01 | PC.NURSE ---
plan intubation, altered, nausea and vomiting, pt with head bleed. 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
--- NOTE | 2018-07-22 14:02 | PC.NURSE ---
intubation by dr zhu, glydyscope 7.5 tube. , color change good, breath sound equal per rt.
[2018-07-22] MEDS: fentaNYL 100 MCG/2 ML INJ IV ×3 (14:14→14:33)
--- NOTE | 2018-07-22 14:23 | DI.RAD.S_ITS ---
PROCEDURE: XR CHEST 1V INDICATIONS: s/p intubatuion NG TECHNIQUE: One view of the chest was acquired. COMPARISON: [facility], CR, XR CHEST 1V, 07/22/2018, 12:58. FINDINGS: Surgical changes and devices: ET tube tip is approximately 2 cm above the andi. NG tube tip is below the left hemidiaphragm. Left-sided possible ventricular shunt catheter is again seen. Lungs and pleura: Lungs are clear. No pleural effusions or pneumothorax. Mediastinum: Mediastinal contours appear normal. Heart size is normal. Bones and chest wall: No suspicious bony lesions. Overlying soft tissues appear unremarkable. IMPRESSION: No acute pulmonary pathology. ET tube and NG tube appears in satisfactory position. Dictated by: Gui Pederson M.D. on 07/22/2018 at 15:07 Approved by: Gui Pederson M.D. on 07/22/2018 at 15:07
--- NOTE | 2018-07-22 14:34 | PC.NURSE ---
ventilation, rate 14, 459 tidal volume, 5 cm peep, 50% fio2 per rt.
[2018-07-22] MEDS: PROPOFOL 1,000 MG/100 ML VIAL 5.443 MG IV (14:41)
--- NOTE | 2018-07-22 15:29 | PC.NURSE ---
[facility].
--- NOTE | 2018-07-22 19:41 | PC.NURSE ---
left nare , ngt tube, insertion , 18f . with abd+auscultation , with brown liquid return.
== END 2018-07-22 14:50 | disposition short-term general hospital (02) ==
LOC: ED 14:41
PROVIDERS: Emergency Provider Emergency Medicine; PCP Physician Assistant
DX: S06.4X9A Epidural hemorrhage with loss of consciousness of unspecified duration, initial encounter (principal); W18.43XA Slipping, tripping and stumbling without falling due to stepping from one level to another, initial encounter
CPT/HCPCS: 31500; 51701; 70450; 71045; 72125; 72170; 80048; 85025; 85610; 85730; 93005; 94002; 94770; 94799; 96365; 96375; 96376; 99285; 99291; 99292; G0390; J1953; J2405; J2704; J3010

== ENCOUNTER 2018-09-09 19:27 | Emergency (ER) | payer OTHER, SELFPAY ==
[2018-08-02 11:33] VITALS: RESP 16; O2SAT 100
[2018-09-09] VITALS (15 sets, daily range): BP systolic 116–193; BP diastolic 57–104; PULSE 61–85; RESP 14–20; TEMP 36.2; O2SAT 92–99
--- NOTE | 2018-09-09 | DI.CT.S_ITS ---
PROCEDURE: CT CERVICAL SPINE WO CON INDICATIONS: FALL TECHNIQUE: Noncontrast 3 mm thick sections acquired from the skull base to the T4 level. Sagittal and coronal reformats were then constructed. For radiation dose reduction, the following was used: automated exposure control, adjustment of mA and/or kV according to patient size. COMPARISON: [facility], CT, CT CERVICAL SPINE WO CON, 07/22/2018, 12:35. FINDINGS: Image quality: Excellent. Bones: Grade 1 anterolisthesis of C4 on C5 and C5 on C6 are seen. Minimal retrolisthesis of C3 on C4 is also noted. This is unchanged from previous study. No fractures or dislocations. Degenerative disc disease throughout cervical spine is again seen with broad based disc bulge and bilateral facet hypertrophic changes noted at C3-4 through C6-7 levels causing mild to moderate central canal stenosis left worst than right lateral neuroforamina narrowing. Visualized superior ribs are intact. Soft tissues: Prevertebral soft tissues are normal in thickness. No paravertebral hematomas. No apical pneumothoraces. IMPRESSION: #1. No acute cervical spine fracture or dislocation. #2. Likely degenerative spondylolisthesis at C3-4 through C5-6 levels. #3. Degenerative disc disease throughout cervical spine not significantly changed from previous study. Dictated by: Gui Pederson M.D. on 09/09/2018 at 20:53 Approved by: Gui Pederson M.D. on 09/09/2018 at 20:55
--- NOTE | 2018-09-09 19:39 | DI.CT.S_ITS ---
PROCEDURE: CT HEAD/BRAIN WO CON INDICATIONS: Patient fell TECHNIQUE: Noncontrast 4.5 mm thick angled axial sections acquired from the foramen magnum to the vertex, with coronal and sagittal reformats. For radiation dose reduction, the following was used: automated exposure control, adjustment of mA and/or kV according to patient size. COMPARISON: [facility], CT, CT HEAD/BRAIN WO CON, 07/22/2018, 12:35. FINDINGS: Image quality: Excellent. CSF spaces: Previously noted large right subdural hematoma is no longer present. Basal cisterns are patent. No extra-axial fluid collections. The ventricles are symmetric in size and shape. Left-sided ventricular shunt catheter is again seen entering through left frontal area with tip near foramen of Reyna unchanged from previous study. Brain: The No intracranial bleeds or masses. There is cerebral volume loss for age, with resultant ventricular and sulcal prominence. There are periventricular and deep white matter chronic small vessel ischemic changes. There is intracranial internal carotid artery atherosclerosis. Skull and face: Post surgical changes are again noted in right calvarium and within suprasellar cistern. No acute skull fracture. The visualized facial bones appear intact, without suspicious lesions. Sinuses: Visualized sinuses and mastoids are clear. IMPRESSION: 1. No CT evidence of acute intracranial pathology. 2. Age-appropriate atrophy and moderate periventricular white matter are likely hepatic changes. 3. Left-sided ventricular shunt in place. No hydrocephalus. Extensive postsurgical changes in right calvarium and suprasellar cistern. Dictated by: Gui Pederson M.D. on 09/09/2018 at 21:02 Approved by: Gui Pederson M.D. on 09/09/2018 at 21:05
--- NOTE | 2018-09-09 19:56 | ED.FALL ---
HPI - Fall General Chief Complaint: Fall Stated Complaint: states she passed out, 3 brain surgeries last week Time Seen by Provider: 09/09/18 19:39 Source: patient, RN notes reviewed and old records reviewed Mode of arrival: ambulatory Limitations: no limitations History of Present Illness HPI Narrative: The patient is a 73-year-old female who presents with headache. She has a history of an epidural hematoma in July after falling on the ice on Plav[place]. She had 3 surgeries at [facility] to help repair that. She has been doing well she was released from rehab on August 24 it came back up to [place]. she has been doing well however over the last couple of days as she has been having increasing headache. a tonight sitting in a chair when she suddenly passed out falling forward hitting her head on coffee table loss of consciousness briefly only a few seconds. Noted to be hypertensive in the ED. She says she has been taking her blood pressure medication. She has no focal deficits denies any nausea. Related Data Home Medications Medication Instructions Recorded Confirmed aspirin 81 mg PO QDAY #0 03/07/16 09/02/18 calcium carbonate [Calci-Chew] 500 mg PO BID #0 03/07/16 09/02/18 lysine [L-Lysine] 500 mg PO BID #0 03/07/16 09/02/18 multivitamin [Multiple Vitamins] 1 tab PO QDAY #0 03/07/16 09/02/18 GLUCOSAMINE/CHONDROITIN SULF A 1 tab PO QDAY #0 10/14/17 09/02/18 [Magnesium] 325 mg PO .see instructions #0 10/14/17 09/02/18 Metoprolol 50 mg See Rx Instructions PO .COMPLEX 09/02/18 09/02/18 Senna Stool Softener See Rx Instructions .ROUTE .COMPLEX 09/02/18 09/02/18 acetaminophen 325 mg tablet 650 mg PO Q4H PRN 09/02/18 09/02/18 gabapentin 100 mg capsule 200 mg PO TID cap 09/02/18 09/02/18 lisinopril 2.5 mg tablet 2.5 mg PO DAILY 09/02/18 09/02/18 Previous Rx's Medication Instructions Recorded varicella-zoster glycoE [id number] 0.5 ml IM ONCE #1 each 01/25/18 adj(PF) 50 mcg/0.5 mL IM susp, kit alendronate 70 mg PO QWEEK #12 tab 05/17/18 Allergies Allergy/AdvReac Type Severity Reaction Status Date / Time Iodinated Contrast- Oral and Allergy Intermediate HIVES Verified 09/02/18 10:49 IV Dye [IODINATED CONTRAST MEDIA - IV DYE] Sulfa (Sulfonamide Allergy Intermediate HIVES AND Verified 09/02/18 10:49 Antibiotics) HALLUCINATIONS [SULFA (SULFONAMIDE ANTIBIOTICS)] phenytoin [PHENYTOIN] Allergy Unknown PATIENT Verified 09/02/18 10:49 DOESN'T REMEMBER - THE ER TOLD ME I HAD A REACTION Review of Systems Review of Systems ROS Unobtainable: All systems reviewed & are unremarkable except as noted in HPI and below Constitutional Denies chills, Denies fever(s), Denies lethargy and Denies weakness Eyes Denies blurry vision and Denies diplopia ENT Ears, Nose, Mouth, and Throat: Denies vertigo, Denies dizziness, Reports neck pain and Reports nose pain (Glasses hit her nose) Cardiovascular Denies chest pain, Reports syncope, Denies pedal edema, Denies irregular heart rhythm, Denies dyspnea and Denies dyspnea on exertion Respiratory Denies cough, Denies dyspnea, Denies dyspnea on exertion and Denies wheezing Gastrointestinal Gastrointestinal: Denies abdominal pain, Denies change in bowel habits, Denies diarrhea, Denies nausea and Denies vomiting Genitourinary Denies hematuria, Denies flank pain, Denies urinary incontinence and Denies urinary urgency Musculoskeletal Reports neck pain Integumentary/Breasts Denies pruritus, Denies erythema, Denies rash and Denies wounds Neurologic Reports as per HPI, Denies vertigo, Denies dizziness, Reports syncope and Denies weakness Allergic/Immunologic Denies wheezing Exam Initial Vital Signs Initial Vital Signs: Vital Signs Temperature 97.1 F L 09/09/18 19:29 Pulse Rate 61 09/09/18 19:29 Respiratory Rate 15 09/09/18 19:29 Blood Pressure 190/88 H 09/09/18 19:29 Pulse Oximetry 97 09/09/18 19:29 Const General: cooperative and frail appearing Nutritional Appearance: thin Orientation: awake and oriented x3 HENMT Head: normal to inspection, normocephalic and other (Scar noted on right side healing scabbed over) Ears: hearing grossly normal bilaterally Nose: No epistaxis and external nose abnormal (Contusion on bridge of nose no laceration) Face and sinus: normal facial exam Eyes General: appearance normal, both eyes and all related structures Pupils: PERRL EOM: EOM intact bilaterally Neck Neck: normal visual inspection and tender (Midline C2-C3 area. C-collar placed in ED) Chest Chest: normal inspection of the chest and normal palpation of entire chest wall Resp Effort & Inspection: normal respiratory effort, able to speak in complete sentences, no respiratory distress and no use of accessory muscles Auscultation: clear to auscultation bilaterally, no rales, no rhonchi and no wheezes Cardio Rate: regular rate Rhythm: regular rhythm Heart Sounds: no click, no gallops, no murmurs and no rubs Pulses: normal peripheral pulses GI Inspection: non-distended Palpation: soft, no hepatosplenomegaly, No guarding, No pulsatile mass and No tender Auscultation: normal bowel sounds Back/Spine/Pelvis Cervical Spine: collar present (Placed in ED) Skin General: no rashes or lesions noted, No jaundice and No petechiae Neuro General: alert, oriented x3, gait normal, no focal motor deficits and CN's II-XI intact bilaterally Speech: speech normal Gait: normal gait Motor: muscle tone normal throughout Sensory Exam: no sensory deficits noted Extrem General: full ROM, no clubbing, cyanosis or edema, no pedal edema and no calf tenderness [facility] Medical History (Updated 09/10/18 @ 04:35 by Johanna Quiñones DO) Essential hypertension (Chronic) Hyperlipidemia (Chronic) Osteoporosis (Chronic) Cerebral aneurysm (Resolved) History of transient cerebral ischemia (Chronic 04/29/16) Obstructive sleep apnea syndrome (Chronic) Diverticulosis of large intestine without hemorrhage (Chronic) Dysphagia (Acute) Mycobacterium avium complex (Chronic ~06/2015) Cystocele (Resolved 2004) Epidural hematoma (Resolved) Skin cancer (Resolved) Subdural hematoma (Resolved) Surgical History History of brain shunt (Resolved 05/2009) Hx of surgical procedure (Resolved 2004) S/P total abdominal hysterectomy and bilateral salpingo-oophorectomy (2004) Family History Father History of cancer Mother History of breast cancer History of colon cancer Smoker Osteoporosis Sister History of lung cancer Brother Cancer Other Family history of malignant neoplasm of breast Family history of malignant neoplasm of colon Social History (System 07/22/18 @ 15:18 by Melissa Schaeffer) household members: none Smoking Status: Former smoker Tobacco: How many years used: 7 second hand exposure: No alcohol intake: current substance use type: does not use Family History Father History of cancer Mother History of breast cancer History of colon cancer Smoker Osteoporosis Sister History of lung cancer Brother Cancer Other Family history of malignant neoplasm of breast Family history of malignant neoplasm of colon Social History (System 07/22/18 @ 15:18 by Melissa Schaeffer) household members: none Smoking Status: Former smoker Tobacco: How many years used: 7 second hand exposure: No alcohol intake: current substance use type: does not use Procedures Lumbar Puncture Time Out Performed: Yes Patient Position: left lateral decubitus Skin Prep: 0.5% Chlorhexidine/Alcohol Local Anesthetic: lidocaine 1% Amount of anesthesia used (mL): 5 Spinal Needle Gauge: 20G Interspace Used: L4-L5 Complications: unable to obtain CSF Additional Comments: Patient has significant arthritis and scoliosis unable to obtain CSF Procedural Sedation Patient Age: Patient is 5yrs or older Consent signed: Yes Time out performed: Yes Indication: other (Lumbar puncture) ASA Class: I Mallampati Airway Classification: Class I Preparation: night monitor applied, pulse oximeter, capnometry used and supplemental O2 applied IV Propofol dose (mg): 45 Intraservice time/total sedation time (min): 10 ED Sedation Level: Moderate (Concious) Patient Tolerated Procedure: Well Complications: none Scores NIH Stroke Scale Level of Conciousness: Alert, keenly responsive Ask month/age: Answers both questions correctly. Open/close eyes, close hand: Performs both tasks correctly Best gaze horizontal: Normal Visual titus: No visual loss Facial palsy: Normal symetrical movement Left arm drift: No drift for full 10 sec Right arm drift: No drift for full 10 sec Left leg drift: No drift for full 10 sec Right leg drift: No drift for full 10 sec Limb ataxia: Absent Sensory on face/arms/legs: Normal, no sensory loss Best language: No aphasia, normal Dysarthria: Normal Extinction or inattention: No abnormality Total NIH Stroke scale score: 0 Course Orders Ordered: Discontinued Medications Diphenhydramine HCl (Benadryl) 25 mg IV NOW ONE Stop: 09/09/18 23:28 Last Admin: 09/09/18 23:37 Dose: 25 mg Sodium Chloride (Normal Saline 0.9%) 1,000 mls @ 1,000 mls/hr IV BOLUS ONE Stop: 09/09/18 20:49 Last Infusion: 09/09/18 21:44 Dose: 150 mls/hr Admin: 09/09/18 20:43 Dose: 1,000 mls/hr Labetalol HCl (Trandate) 10 mg IV NOW ONE Stop: 09/09/18 20:38 Last Admin: 09/09/18 21:40 Dose: 10 mg Methylprednisolone (Solu-Medrol 125 Mg Vial) 125 mg IV NOW ONE Stop: 09/09/18 23:28 Last Admin: 09/09/18 23:37 Dose: 125 mg Morphine Sulfate (Morphine) 2 mg IV NOW ONE Stop: 09/09/18 20:38 Last Admin: 09/09/18 20:43 Dose: 2 mg Propofol (Diprivan) 45 mg 1 mg/kg (45 mg) IV NOW ONE Stop: 09/09/18 21:43 Last Admin: 09/09/18 22:01 Dose: 45 mg Consultations Consultation #1: Dr. Ryder, neurosurgeon at [facility] has been consult in. Where his initial head CT is negative and spinal tap was unsuccessful. Still concern for possible subarachnoid hemorrhage. He says at this time on likely but does recommend CTA to look for aneurysm. If things likely hypertension causing her headache. Time: 23:08 Vital Signs - 8 hr 09/09/18 20:49 09/09/18 21:00 09/09/18 21:40 Pulse Rate 71 67 64 Respiratory Rate 20 15 Blood Pressure 193/81 H Blood Pressure [Right Arm] 169/84 H 175/75 H Pulse Oximetry 96 92 09/09/18 21:48 09/09/18 22:00 09/09/18 22:06 Pulse Rate 76 71 79 Respiratory Rate 15 18 Blood Pressure 158/69 H Blood Pressure [Right Arm] 159/70 H 144/76 H Pulse Oximetry 94 99 09/09/18 22:10 09/09/18 22:15 09/09/18 22:25 Pulse Rate 76 81 85 Respiratory Rate 16 16 14 Blood Pressure Blood Pressure [Right Arm] 116/57 L 133/61 152/77 H Pulse Oximetry 97 94 98 09/09/18 22:27 09/09/18 22:30 09/09/18 23:00 Pulse Rate 75 85 80 Respiratory Rate 20 15 14 Blood Pressure Blood Pressure [Right Arm] 156/65 H 176/82 H Pulse Oximetry 92 93 09/09/18 23:42 Pulse Rate 67 Respiratory Rate 15 Blood Pressure Blood Pressure [Right Arm] 143/65 H Pulse Oximetry 94 MDM - Fall Lab Data Attestation: I reviewed the patient's lab results. Result diagrams: 09/09/18 20:05 09/09/18 20:54 Lab Results 09/09/18 09/09/18 Range/Units 20:05 20:54 WBC 5.9 (4.5-11.0) X10^3/uL RBC 4.31 (4.0-5.2) X10^6/uL Hgb 13.0 (12.0-16.0) g/dL Hct 39.7 (36-46) % MCV 91.9 (80-100) fL MCH 30.2 (26-34) PG MCHC 32.8 (30-36) % RDW 14.7 (11.6-14.8) % Plt Count 255 (150-400) X10^3/uL Neut % (Auto) 71.2 (50-75) % Lymph % (Auto) 18.9 L (25-40) % [place] % (Auto) 7.6 (3-14) % Eos % (Auto) 0.9 L (2-4) % Baso % (Auto) 1.4 (0-2) % Neut # (Auto) 4200 (6509-5223) /uL Lymph # (Auto) 1100 (0082-5177) /uL [place] # (Auto) 500 (0-900) /uL Eos # (Auto) 100 (0-450) /uL Baso # (Auto) 100 (0-100) /uL Sodium 136 L (137-145) mmol/L Potassium 3.6 (3.4-5.1) mmol/L Chloride 100 (98-107) mmol/L Carbon Dioxide 26 (22-32) mmol/L BUN 8 (7-17) mg/dL Creatinine 0.40 L (0.52-1.04) mg/dL Estimated GFR > 60.0 (>60) mL/min BUN/Creatinine Ratio 20.0 (6-22) Glucose 103 (80-110) mg/dL Calcium 9.8 (8.4-10.2) mg/dL Total Bilirubin 0.6 (0.2-1.3) mg/dL AST 16 (14-36) IU/L ALT 26 (9-52) IU/L Alkaline Phosphatase 64 (38-126) U/L Total Creatine Kinase < 20 L (30-135) U/L CK-MB (CK-2) TNP CK-MB (CK-2) Rel Index TNP Troponin I < 0.012 (0.01-0.034) ng/mL Total Protein 6.8 (6.3-8.2) g/dL Albumin 4.3 (3.5-5.0) g/dL Globulin 2.5 (1.7-4.1) g/dL Albumin/Globulin Ratio 1.7 (1.0-2.8) Point of Care Testing Test Results Not applicable Glucose POC [address] scan - head: Radiologist's impression: Unable to pull up the [place]: Impression 1. No CT evidence of acute intracranial pathology. Age-appropriate atrophy and moderate periventricular white matter are likely hepatic changes. 3. Left-sided ventricular shunt in place. No hydrocephalus. Extensive postsurgical changes in right calvarium and suprasellar cistern. CT Cervicle spine: Radiologist's impression: PROCEDURE: CT CERVICAL SPINE WO CON INDICATIONS: FALL TECHNIQUE: Noncontrast 3 mm thick sections acquired from the skull base to the T4 level. Sagittal and coronal reformats were then constructed. For radiation dose reduction, the following was used: automated exposure control, adjustment of mA and/or kV according to patient size. COMPARISON: [facility], CT, CT CERVICAL SPINE WO CON, 07/22/2018, 12:35. FINDINGS: Image quality: Excellent. Bones: Grade 1 anterolisthesis of C4 on C5 and C5 on C6 are seen. Minimal retrolisthesis of C3 on C4 is also noted. This is unchanged from previous study. No fractures or dislocations. Degenerative disc disease throughout cervical spine is again seen with broad based disc bulge and bilateral facet hypertrophic changes noted at C3-4 through C6-7 levels causing mild to moderate central canal stenosis left worst than right lateral neuroforamina narrowing. Visualized superior ribs are intact. Soft tissues: Prevertebral soft tissues are normal in thickness. No paravertebral hematomas. No apical pneumothoraces. IMPRESSION: #1. No acute cervical spine fracture or dislocation. #2. Likely degenerative spondylolisthesis at C3-4 through C5-6 levels. #3. Degenerative disc disease throughout cervical spine not significantly changed from previous study. Dictated by: Gui Pederson M.D. on 09/09/2018 at 20:53 Approved by: Gui Pederson M.D. 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 No intracranial aneurysm identified ECG Data Interpretation: Unfortunately EKG was ordered and not done patient was discharged prior to EKG Previous EKG under Shelley walker MR Perez [id number] on 07/22/18 MDM Narrative Medical decision making narrative: Patient had syncopal episode with worsening headache and hypertension concern for subarachnoid hemorrhage. I discussed with patient need for lumbar puncture to officially rule out subarachnoid hemorrhage. His patient agrees consent is in chart. Lumbar punctures unsuccessful still concern for possible subarachnoid hemorrhage although her headache is improving after propofol she was given labetalol as well and her blood pressure has decreased and remains stable. At this time Neurosurgery recommends CTA. CTA is negative patient sleeping overall feeling much better. Ambulatory to the restroom a slightly lightheaded due to probable fall. A son at bedside. Updated on all results. Discharge Plan Departure Patient Disposition: Home Clinical Impression: Essential hypertension Syncope Qualifiers: Syncope type: unspecified Qualified Code(s): R55 - Syncope and collapse Headache Qualifiers: Headache type: unspecified Headache chronicity pattern: acute headache Intractability: not intractable Qualified Code(s): R51 - Headache Discharge Date/Time: 09/10/18 02:54 Interventions: ED Discharge Assessment Last Done: 09/10/18 01:05 Instructions: DI for Syncope in Adults (Fainting) Activity Restrictions/Additional Instructions: *You have been diagnosed with headache, hypertension, syncopal episode *What to do: At this time 2-CT scans. Unable to perform lumbar puncture due to severe arthritis. He however no sign of aneurysm or intracranial bleeding at this time. Headache may be cause to blood pressure. Recommend talking with her PCP in regard to blood pressure medication. *Continue to take medications as directed *Follow up with your primary care provider in 2-3 days *Return to ER if you should have recurrent syncopal episode, worsening headache, facial drooping, weakness, vision changes or any new, worsening or concerning symptoms Prescriptions: No Action varicella-zoster [id number] (PF) [Shingrix (PF)] 50 mcg/0.5 mL suspension for reconstitution 0.5 ml IM ONCE Qty: 1 RF: 1 gabapentin 100 mg capsule 200 mg PO TID RF: 0 lisinopril 2.5 mg tablet 2.5 mg PO DAILY RF: 0 Metoprolol 50 mg See Patient Comments PO .COMPLEX RF: 0 acetaminophen [Tylenol] 325 mg tablet 650 mg PO Q4H PRNRF: 0 Senna Stool Softener See Patient Comments .ROUTE .COMPLEX RF: 0 aspirin 81 MG tablet,delayed release (DR/EC) 81 mg PO QDAY Qty: 0 RF: 0 multivitamin [Multiple Vitamins] 1 EACH tablet 1 tab PO QDAY Qty: 0 RF: 0 lysine [L-Lysine] 500 mg Tablet 500 mg PO BID Qty: 0 RF: 0 calcium carbonate [Calci-Chew] 500 MG tablet,chewable 500 mg PO BID Qty: 0 RF: 0 GLUCOSAMINE/CHONDROITIN SULF A 1 tab PO QDAY Qty: 0 RF: 0 [Magnesium] 325 mg PO .see instructions Qty: 0 RF: 0 alendronate 70 mg tablet 70 mg PO QWEEK Qty: 12 RF: 4 Referrals: Taina Gustafson PA-C [Primary Care Provider] -
[2018-09-09 20:21] LABS: Add Manual Diff / Slide Review NO; Basophils Absolute Auto 100 /uL (0-100); Basophils Percent Auto 1.4 % (0-2); Eosinophils Absolute Auto 100 /uL (0-450); Eosinophils Percent Auto 0.9 % (2-4); Hematocrit 39.7 % (36-46); Lymphocytes Absolute Auto 1100 /uL (1100-4500); Lymphocytes Percent Auto 18.9 % (25-40); Mean Corpuscular HGB Conc 32.8 % (30-36); Mean Corpuscular Hemoglobin 30.2 PG (26-34); Mean Corpuscular Volume 91.9 fL (80-100); Monocytes Absolute Auto 500 /uL (0-900); Monocytes Percent Auto 7.6 % (3-14); Neutrophils Absolute Auto 4200 /uL (1500-7000); Neutrophils Percent Auto 71.2 % (50-75); Platelet Count 255 X10^3/uL (150-400); Red Blood Cell Count 4.31 X10^6/uL (4.0-5.2); Red Cell Distribution Width 14.7 % (11.6-14.8); White Blood Cell Count 5.9 X10^3/uL (4.5-11.0)
[2018-09-09] MEDS: SODIUM CHLORIDE 0.9% 1,000 ML 1000 ML IV (20:43)
[2018-09-09] MEDS: MORPHINE 2 MG/ML INJ IV (20:43)
[2018-09-09 21:12] LABS: Alanine Aminotransferase 26 IU/L (9-52); Albumin 4.3 g/dL (3.5-5.0); Albumin Globulin Ratio 1.7 (1.0-2.8); Alkaline Phosphatase 64 U/L (38-126); Aspartate Aminotransferase 16 IU/L (14-36); Bilirubin Total 0.6 mg/dL (0.2-1.3); Blood Urea Nitrogen 8 mg/dL (7-17); Calcium 9.8 mg/dL (8.4-10.2); Carbon Dioxide 26 mmol/L (22-32); Chloride 100 mmol/L (98-107); Creatine Kinase < 20 U/L (30-135); Estimated Glomerular Filt Rate > 60.0 mL/min (>60); Globulin 2.5 g/dL (1.7-4.1); Glucose 103 mg/dL (80-110); HEMOLYSIS < 15 (0-50); Potassium 3.6 mmol/L (3.4-5.1); Sodium 136 mmol/L (137-145); Total Protein 6.8 g/dL (6.3-8.2)
[2018-09-09 21:24] LABS: Troponin I < 0.012 ng/mL (0.01-0.034)
[2018-09-09] MEDS: LABETALOL 20 MG/4 ML SYRINGE 10 MG IV (21:40)
[2018-09-09] MEDS: PROPOFOL 200 MG/20 ML VIAL 45 MG IV (22:01)
--- NOTE | 2018-09-09 23:07 | DI.CT.S_ITS ---
PROCEDURE: CT ANGIO HEAD INDICATIONS: fall, history of subarachnoid hemarhage,worsening headache and hypertension TECHNIQUE: Precontrast 4.5 mm thick angled axial sections acquired from the foramen magnum to the vertex. After the administration of intravenous contrast, 1 mm thick sections acquired through the [place] of Ac. Postcontrast 4.5 mm thick sections then re-acquired from the foramen magnum to the vertex. 10 mm thick [id number] (MIP) reformats were acquired of the central intracranial vasculature. For radiation dose reduction, the following was used: automated exposure control, adjustment of mA and/or kV according to patient size. COMPARISON: [facility], CT, CT HEAD/BRAIN WO CON, 07/22/2018, 12:35. [facility], CT, CT HEAD/BRAIN WO CON, 09/09/2018, 20:08. FINDINGS: Image quality: Excellent. 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 Interventricular catheter projects to the third ventricle via a left frontal approach. Intracranial internal carotid arteries are normal in size and flow. Atherosclerotic calcification noted in the cavernous and clinoid segments of the internal carotid arteries bilaterally which is not causing visible stenosis. The flow within the paired anterior cerebral arteries is normal and symmetric. The flow within the middle cerebral arteries is normal and symmetric. The anterior communicating artery is seen. No aneurysms are seen. Posterior circulation: Visualized portions of the vertebral arteries demonstrate normal caliber, and join to form a normal appearing basilar artery. Flow within the posterior cerebral arteries is normal and symmetric. No aneurysms are seen. Dural sinuses demonstrate normal postcontrast enhancement. CSF spaces: Ventricles are normal in size and shape. Basal cisterns are patent. No extra-axial fluid collections. Brain: No midline shift. No intracranial bleeds or masses. [place]-white matter interface appears intact. Hypodensity in the right frontal lobe extending to the right lateral ventricle likely related to prior course of interventricular catheter which has been subsequently removed. Small, chronic right cerebellar hemisphere lacunar infarct is stable. Skull and face: Postsurgical changes compatible with prior right frontal-temporal parietal craniotomy noted. Right frontal dominga hole is noted which is in place minimal since prior exam obtained 07/22/2018 likely for evacuation of large right frontal epidural hematoma. The facial bones appear intact, without suspicious lesions. Sinuses: Visualized sinuses and mastoids are clear. IMPRESSION: 1. No acute intracranial disease process. 2. No acute intracranial hemorrhage. 3. 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 4. Interventricular shunt is stable. Dictated by: Sarah Davis MD, PhD on 09/10/2018 at 9:06 Approved by: Sarah Davis MD, PhD on 09/10/2018 at 9:16
[2018-09-09] MEDS: methylPREDNISolone 125 MG/2 ML VIAL IV (23:37)
[2018-09-09] MEDS: diphenhydrAMINE 50 MG/ML VIAL 25 MG IV (23:37)
== END 2018-09-10 02:54 | disposition home or self-care (01) ==
PROVIDERS: Emergency Provider Emergency Medicine; Family Provider Physician Assistant; PCP Physician Assistant
DX: R55 Syncope and collapse (principal); R51 Headache; W19.XXXA Unspecified fall, initial encounter; M54.2 Cervicalgia; Z98.890 Other specified postprocedural states
CPT/HCPCS: 36415; 36591; 62272; 70450; 70496; 72125; 80053; 82550; 82962; 84484; 85025; 94770; 96361; 96374; 96375; 99152; 99285; J1200; J2270; J2704; J2930; Q9967

== ENCOUNTER 2018-09-20 12:37 | Emergency (ER) | payer OTHER, SELFPAY ==
[2018-08-02 11:33] VITALS: RESP 16; O2SAT 100
[2018-09-20 12:41] VITALS: BP 165/81; PULSE 58; RESP 14; TEMP 36.7; O2SAT 97
--- NOTE | 2018-09-20 12:46 | DI.RAD.S_ITS ---
PROCEDURE: XR RIBS LT MIN 3V W CXR1V INDICATIONS: fall, left chest wall / side pain TECHNIQUE: 2 views of the left ribs were acquired, along with a single view chest. COMPARISON: None. FINDINGS: Surgical changes and devices: A left-sided BP shunt catheter is seen. Bones and chest wall: No fractures or dislocations. No suspicious bony lesions. Overlying soft tissues appear unremarkable. Lungs and pleura: No pleural effusions or pneumothorax. Lungs appear clear. Mediastinum: Mediastinal contours appear normal. Heart size is normal. IMPRESSION: No gross left rib abnormality. No acute cardiopulmonary pathology. Dictated by: Gui Pederson M.D. on 09/20/2018 at 13:10 Approved by: Gui Pederson M.D. on 09/20/2018 at 13:12
[2018-09-20 12:53] VITALS: BP 161/68; PULSE 54; RESP 17; TEMP 36.5; O2SAT 100
[2018-09-20 13:40] VITALS: BP 168/78; PULSE 68; RESP 24; O2SAT 100
[2018-09-20 14:00] VITALS: BP 155/71; PULSE 64; RESP 15; O2SAT 96
--- NOTE | 2018-09-20 14:01 | ED_ITS ---
HPI - Fall <Tennille Paniagua AIR MOVING TECHNICIAN-BC - Last Filed: 09/20/18 21:19> General Chief Complaint: Fall Stated Complaint: fall, yesterday, left side rib pain, pain breathin Time Seen by Provider: 09/20/18 13:32 Source: patient and family Mode of arrival: ambulatory Limitations: no limitations History of Present Illness HPI Narrative: Patient is a 73-year-old who presents with her niece after a ground ball yesterday at 1:00 p.m.. She states she tripped and fell. She is insistent that this was a mechanical fall, she was not lightheaded and did not syncope. She states she landed with her left ribs on a door to the TV stand and has bruising and abrasion. She states she was okay last night when she took oxycodone. She states that her pain has gotten incredibly worse today and she is worried about rib fractures. She does have a history of a craniotomy and subarachnoid hemorrhage. she denies hitting her head, neck or back pain. upon arrival to the emergency department, she did complain of chest pain, that recovered immediately after her pillows were repositioned. Related Data Home Medications Medication Instructions Recorded Confirmed aspirin 81 mg PO QDAY #0 03/07/16 09/02/18 calcium carbonate [Calci-Chew] 500 mg PO BID #0 03/07/16 09/02/18 lysine [L-Lysine] 500 mg PO BID #0 03/07/16 09/02/18 multivitamin [Multiple Vitamins] 1 tab PO QDAY #0 03/07/16 09/02/18 GLUCOSAMINE/CHONDROITIN SULF A 1 tab PO QDAY #0 10/14/17 09/02/18 [Magnesium] 325 mg PO .see instructions #0 10/14/17 09/02/18 Metoprolol 50 mg See Rx Instructions PO .COMPLEX 09/02/18 09/02/18 Senna Stool Softener See Rx Instructions .ROUTE .COMPLEX 09/02/18 09/02/18 acetaminophen 325 mg tablet 650 mg PO Q4H PRN 09/02/18 09/02/18 gabapentin 100 mg capsule 200 mg PO TID cap 09/02/18 09/02/18 lisinopril 2.5 mg tablet 2.5 mg PO DAILY 09/02/18 09/02/18 Previous Rx's Medication Instructions Recorded varicella-zoster glycoE [id number] 0.5 ml IM ONCE #1 each 01/25/18 adj(PF) 50 mcg/0.5 mL IM susp, kit alendronate 70 mg PO QWEEK #12 tab 05/17/18 lidocaine 1 patch TOP DAILY #15 each 09/20/18 tramadol 50 mg PO BID PRN #7 tab 09/20/18 Allergies Allergy/AdvReac Type Severity Reaction Status Date / Time Iodinated Contrast- Oral and Allergy Intermediate HIVES Verified 09/02/18 10:49 IV Dye [IODINATED CONTRAST MEDIA - IV DYE] Sulfa (Sulfonamide Allergy Intermediate HIVES AND Verified 09/02/18 10:49 Antibiotics) HALLUCINATIONS [SULFA (SULFONAMIDE ANTIBIOTICS)] phenytoin [PHENYTOIN] Allergy Unknown PATIENT Verified 09/02/18 10:49 DOESN'T REMEMBER - THE ER TOLD ME I HAD A REACTION Review of Systems <VERONIKA Reyes - Last Filed: 09/20/18 21:19> Review of Systems GENERAL: Denies chills, fatigue, malaise, fever, sweats. HEENT: Denies sinus pain, ear pain, sore throat, difficulty swallowing, dizziness. RESPIRATORY: See HPI CARDIOVASCULAR: Denies chest pain, palpitations, orthopnea, edema, GASTROINTESTINAL: Denies nausea, vomiting, abdominal pain, diarrhea, constipation, melena. : Denies dysuria, frequency, incontinence, hematuria, urinary retention. MUSCULOSKELETAL: See HPI SKIN: See HPI NEUROLOGIC: Denies weakness, headache, numbness, change in speech, confusion, seizures, incoordination. PSYCHIATRIC: No concerning psychosocial issues. 12 point review of systems is negative except for those stated above Exam <VERONIKA Reyes - Last Filed: 09/20/18 21:19> Narrative Exam Narrative: GENERAL: Chronically-ill appearing female lying in stretcher HEAD: Atraumatic. Normocephalic. No temporal or scalp tenderness. EYES: Pupils equal round and reactive. Extraocular motions intact. No scleral icterus. No injection or drainage. ENT: Nose without bleeding, purulent drainage or septal hematoma. Throat without erythema, tonsillar hypertrophy or exudate. Uvula midline. Airway patent. NECK: Trachea midline. No JVD or lymphadenopathy. Supple, nontender, no meningeal signs. CARDIOVASCULAR: Regular rate and rhythm without murmurs, gallops, or rubs. RESPIRATORY: Clear to auscultation. Breath sounds equal bilaterally. No wheezes, rales, or rhonchi. No cough. No increased respiratory effort. Pain to palpation left lateral ribs. Pain on anterior posterior chest wall compression esteves pain on lateral chest wall compression. GASTROINTESTINAL: Abdomen soft, non-tender, nondistended. No hepato- splenomegaly, or palpable masses. No guarding. active bowel sounds. Abdomen is soft nonrigid. No pulsatile mass palpated. EXTREMITIES: No clubbing, cyanosis, or edema. No joint tenderness, effusion, or edema noted. BACK: Nontender without deformity or crepitance. No flank tenderness. no pain to C-spine or spinal palpation. NEURO: AOx3. SKIN: Ecchymosis and 3 x 1 cm abrasion noted left lower ribs. Initial Vital Signs Initial Vital Signs: Vital Signs Temperature 98.1 F 09/20/18 12:41 Pulse Rate 58 L 09/20/18 12:41 Respiratory Rate 14 09/20/18 12:41 Blood Pressure 165/81 H 09/20/18 12:41 Pulse Oximetry 97 09/20/18 12:41 <Tennille Marinelli DO - Last Filed: 09/21/18 07:37> Initial Vital Signs Initial Vital Signs: Vital Signs Temperature 98.1 F 09/20/18 12:41 Pulse Rate 58 L 09/20/18 12:41 Respiratory Rate 14 09/20/18 12:41 Blood Pressure 165/81 H 09/20/18 12:41 Pulse Oximetry 97 09/20/18 12:41 PFSH <VERONIKA Reyes - Last Filed: 09/20/18 21:19> Medical History Essential hypertension (Chronic) Hyperlipidemia (Chronic) Osteoporosis (Chronic) Cerebral aneurysm (Resolved) History of transient cerebral ischemia (Chronic 04/29/16) Obstructive sleep apnea syndrome (Chronic) Diverticulosis of large intestine without hemorrhage (Chronic) Dysphagia (Acute) Mycobacterium avium complex (Chronic ~06/2015) Cystocele (Resolved 2004) Epidural hematoma (Resolved) Skin cancer (Resolved) Subdural hematoma (Resolved) Surgical History History of brain shunt (Resolved 05/2009) Hx of surgical procedure (Resolved 2004) S/P total abdominal hysterectomy and bilateral salpingo-oophorectomy (2004) Family History Father History of cancer Mother History of breast cancer History of colon cancer Smoker Osteoporosis Sister History of lung cancer Brother Cancer Other Family history of malignant neoplasm of breast Family history of malignant neoplasm of colon Social History household members: none Smoking Status: Former smoker Tobacco: How many years used: 7 second hand exposure: No alcohol intake: current substance use type: does not use Family History Father History of cancer Mother History of breast cancer History of colon cancer Smoker Osteoporosis Sister History of lung cancer Brother Cancer Other Family history of malignant neoplasm of breast Family history of malignant neoplasm of colon Social History household members: none Smoking Status: Former smoker Tobacco: How many years used: 7 second hand exposure: No alcohol intake: current substance use type: does not use Course <VERONIKA Reyes - Last Filed: 09/20/18 21:19> Orders Ordered: ED Orders 09/20/18 12:46 XR ribs LT min 3V w CXR1V Stat 09/20/18 13:52 RT Consult Eval and Treat Now Vital Signs - 8 hr 09/20/18 13:40 09/20/18 14:00 09/20/18 15:15 Temperature Pulse Rate 68 64 61 Respiratory Rate 24 15 16 Blood Pressure Blood Pressure [Right Arm] 168/78 H 155/71 H 151/75 H Pulse Oximetry 100 96 99 09/20/18 15:20 Temperature 98.2 F Pulse Rate 65 Respiratory Rate 16 Blood Pressure 151/75 H Blood Pressure [Right Arm] Pulse Oximetry 99 <Tennille Marinelli DO - Last Filed: 09/21/18 07:37> Orders Ordered: ED Orders 09/20/18 12:46 XR ribs LT min 3V w CXR1V Stat 09/20/18 13:52 RT Consult Eval and Treat Now Vital Signs - 8 hr 09/20/18 13:40 09/20/18 14:00 09/20/18 15:15 Temperature Pulse Rate 68 64 61 Respiratory Rate 24 15 16 Blood Pressure Blood Pressure [Right Arm] 168/78 H 155/71 H 151/75 H Pulse Oximetry 100 96 99 09/20/18 15:20 Temperature 98.2 F Pulse Rate 65 Respiratory Rate 16 Blood Pressure 151/75 H Blood Pressure [Right Arm] Pulse Oximetry 99 MDM - Fall <BUTCH Reyes- - Last Filed: 09/20/18 21:19> Imaging Data ribs xray : Radiologist's impression: [address] [address] XRay Report Signed Patient: Kiarra Pires#: [id number] : 5Acct:[id number] Age/Sex: 73 / FDate of Service: 09/20/18 Loc: ED Accession Number: [id number] Procedure: XR ribs LT min 3V w CXR1V Ordering Provider: Tennille Marinelli D.O. PROCEDURE: XR RIBS LT MIN 3V W CXR1V INDICATIONS: fall, left chest wall / side pain TECHNIQUE: 2 views of the left ribs were acquired, along with a single view chest. COMPARISON: None. FINDINGS: Surgical changes and devices: A left-sided BP shunt catheter is seen. Bones and chest wall: No fractures or dislocations. No suspicious bony lesions. Overlying soft tissues appear unremarkable. Lungs and pleura: No pleural effusions or pneumothorax. Lungs appear clear. Mediastinum: Mediastinal contours appear normal. Heart size is normal. IMPRESSION: No gross left rib abnormality. No acute cardiopulmonary pathology. Dictated by: Gui Pederson M.D. on 09/20/2018 at 13:10 Approved by: Gui Pederson M.D. on 09/20/2018 at 13:12 [facility] Narrative Medical decision making narrative: The patient is a 73-year-old female who presents after hitting her ribs a door when she tripped. She did not hit her head and denies neck pain or back pain. she had a normal rib x-ray that did not show any acute fracture. She definitely has a contusion. The she was given incentive spirometry education in the emergency department. She ambulates steadily throughout the ER. I did discuss and offer her workup for her transient chest pain in the emergency department, but the patient repeatedly declined stating she thinks it was positional. I discussed that seems likely, but that I cannot establish of that without a workup. She repeatedly declined further workup the emergency department. I did give her prescription of trama dol so that she can help sleep and discussed at length the importance of taking deep breaths. Patient has no questions or concerns upon discharge. She was hemodynamically stable throughout her stay in the emergency department and was discharged home with a family member. Discussed follow-up primary care provider soon as possible. Discharge Plan Departure Patient Disposition: Home Clinical Impression: Fall from ground level Chest wall contusion Qualifiers: Encounter type: initial encounter Laterality: left Qualified Code(s): S20.212A - Contusion of left front wall of thorax, initial encounter Discharge Date/Time: 09/20/18 15:21 Interventions: ED Discharge Assessment Last Done: 09/20/18 15:20 Instructions: How to Use an Incentive Spirometer, DI for Contusion, DI for Rib Contusion, How to Prevent Falls Activity Restrictions/Additional Instructions: You did not break ribs in your fall. I have given you tramadol as a pain killer. The aware that this can be sedating and constipating. I have given you pain patches. Please continue to do incentive spirometry as discussed as well as taking deep breaths in order to prevent pneumonia. Come back to emergency department for any acute concerns including shortness of breath, chest pain concern of heart attack or stroke. Prescriptions: New tramadol 50 mg tablet 50 mg PO BID PRN (Reason: pain) Qty: 7 RF: 0 lidocaine 5 % adhesive patch,medicated 1 patch TOP DAILY Qty: 15 RF: 0 No Action varicella-zoster [id number] (PF) [Shingrix (PF)] 50 mcg/0.5 mL suspension for reconstitution 0.5 ml IM ONCE Qty: 1 RF: 1 gabapentin 100 mg capsule 200 mg PO TID RF: 0 lisinopril 2.5 mg tablet 2.5 mg PO DAILY RF: 0 Metoprolol 50 mg See Patient Comments PO .COMPLEX RF: 0 acetaminophen [Tylenol] 325 mg tablet 650 mg PO Q4H PRNRF: 0 Senna Stool Softener See Patient Comments .ROUTE .COMPLEX RF: 0 aspirin 81 MG tablet,delayed release (DR/EC) 81 mg PO QDAY Qty: 0 RF: 0 multivitamin [Multiple Vitamins] 1 EACH tablet 1 tab PO QDAY Qty: 0 RF: 0 lysine [L-Lysine] 500 mg Tablet 500 mg PO BID Qty: 0 RF: 0 calcium carbonate [Calci-Chew] 500 MG tablet,chewable 500 mg PO BID Qty: 0 RF: 0 GLUCOSAMINE/CHONDROITIN SULF A 1 tab PO QDAY Qty: 0 RF: 0 [Magnesium] 325 mg PO .see instructions Qty: 0 RF: 0 alendronate 70 mg tablet 70 mg PO QWEEK Qty: 12 RF: 4 Referrals: Taina Gustafson PA-C [Primary Care Provider] - <Tennille Marinelli DO - Last Filed: 09/21/18 07:37> Cosign ED Attending Cosignature Attestation: I was immediately available in the department for consultation. This documentation has been reviewed and I agree with assessment and plan. Supervised by Tennille Marinelli DO
[2018-09-20 15:15] VITALS: BP 151/75; PULSE 61; RESP 16; O2SAT 99
--- NOTE | 2018-09-20 15:19 | PC.NURSE ---
Respiratory in to give pt IS and teaching.
[2018-09-20 15:20] VITALS: BP 151/75; PULSE 65; RESP 16; TEMP 36.8; O2SAT 99
== END 2018-09-20 15:21 | disposition home or self-care (01) ==
PROVIDERS: Emergency Provider Nurse Practitioner Family; Family Provider Physician Assistant; PCP Physician Assistant
DX: S20.212A Contusion of left front wall of thorax, initial encounter (principal); R07.1 Chest pain on breathing; W19.XXXA Unspecified fall, initial encounter
CPT/HCPCS: 71101; 99283

== ENCOUNTER 2019-07-04 15:33 | Emergency (ER) | payer OTHER, SELFPAY ==
[2018-10-07 14:33] VITALS: RESP 16; O2SAT 100
[2019-07-04 15:44] VITALS: BP 198/94; PULSE 75; RESP 18; TEMP 36.2; O2SAT 100
--- NOTE | 2019-07-04 15:55 | DI.CT.S_ITS ---
PROCEDURE: CT HEAD/BRAIN WO CON INDICATIONS: headache, hx of surg/bleed TECHNIQUE: Noncontrast 4.5 mm thick angled axial sections acquired from the foramen magnum to the vertex, with coronal and sagittal reformats. For radiation dose reduction, the following was used: automated exposure control, adjustment of mA and/or kV according to patient size. COMPARISON: [facility], CT, CT HEAD/BRAIN WO CON, 09/09/2018, 20:08. [facility], CT, CT HEAD/BRAIN WO CON, 07/22/2018, 12:35. FINDINGS: Image quality: Excellent. CSF spaces: Basal cisterns are patent. No extra-axial fluid collections. The ventricles are symmetric in size and shape. Left frontal ventriculostomy catheter in normal position. Brain: No intracranial bleeds or masses. There is cerebral volume loss for age, with resultant ventricular and sulcal prominence. There are periventricular and deep white matter chronic small vessel ischemic changes. There is intracranial internal carotid artery atherosclerosis. Skull and face: Calvarium and visualized facial bones appear intact, without suspicious lesions. Sinuses: Visualized sinuses and mastoids are clear. IMPRESSION: Prior craniotomy, left side ventriculostomy catheter in normal position crossing the foramen of Hirsch and extending into the anterior third ventricle. There is no hydrocephalus, or evidence of intracranial hemorrhage. Dictated by: Alonso Bearden M.D. on 07/04/2019 at 16:12 Approved by: Alonso Bearden M.D. on 07/04/2019 at 16:14
[2019-07-04 16:17] VITALS: BP 198/96; PULSE 75; RESP 14; O2SAT 97
--- NOTE | 2019-07-04 16:53 | ED_ITS ---
HPI - Headache General Chief Complaint: Headache Stated Complaint: NOT FEELING WELL OF THE HEAD PREVIOUS BRAIN BLEEDS Time Seen by Provider: 07/04/19 16:50 Mode of arrival: Ambulatory History of Present Illness HPI Narrative: The patient is a 73-year-old female who questionably has a history of chronic headaches. The patient stated that her current headache started yesterday. But her friend states that she was complaining of headaches last week. The patient is anxious and upset because she has had an aneurysm burst in bleed in her head. Than 1 year ago in May she slipped and fell striking her head and developed a subarachnoid hemorrhage. The patient states that her headache feels as though her head is full and pressure dull and achy as if it is going to explode. She states that the discomfort is 5 to 6/10 in intensity. She states that her incision and her scalp is sensitive to touch. She denies any recent fall or injury. She is not on any blood thinners. She has had no difficulty in walking ataxia stumbling or disequilibrium. She denies any numbness tingling paresthesias anesthesias paresis or paralysis. She has had no change in vision loss of vision or diplopia. She has some degree of chronic mild nasal drainage and sinus congestion. She had vomiting last week but none in the last few days. She denies any nausea change in bowel habits abdominal pain or urinary symptoms. She has had no chest pain cough shortness of breath palpitations. She states that she has a history of migraines and that she has phonophobia and photophobia Related Data Home Medications Medication Instructions Recorded Confirmed multivitamin [Multiple Vitamins] 1 tab PO DAILY #0 03/07/16 07/04/19 acetaminophen 325 mg tablet 650 mg PO Q4H PRN 09/02/18 07/04/19 calcium carbonate [Calcium 500] 1,000 mg PO DAILY 07/04/19 07/04/19 citalopram [Celexa] 20 mg PO DAILY 07/04/19 07/04/19 glucosamine-chondroitin 30 ml PO DAILY 07/04/19 07/04/19 lysine [L-Lysine] 500 mg PO BID 07/04/19 07/04/19 metoprolol succinate 25 mg PO DAILY 07/04/19 07/04/19 Previous Rx's Medication Instructions Recorded lisinopril 2.5 mg tablet 2.5 mg PO DAILY #14 tab 09/21/18 ibuprofen 600 mg PO Q6H PRN #20 tab 07/04/19 prednisone 40 mg PO DAILY #10 tab 07/04/19 prochlorperazine maleate 10 mg PO Q6H PRN #10 tab 07/04/19 [Compazine] Allergies Allergy/AdvReac Type Severity Reaction Status Date / Time Iodinated Contrast Media Allergy Intermediate HIVES Verified 10/07/18 15:51 [IODINATED CONTRAST MEDIA - IV DYE] Sulfa (Sulfonamide Allergy Intermediate HIVES AND Verified 10/07/18 15:51 Antibiotics) HALLUCINATIONS [SULFA (SULFONAMIDE ANTIBIOTICS)] phenytoin [PHENYTOIN] Allergy Unknown PATIENT Verified 10/07/18 15:51 DOESN'T REMEMBER - THE ER TOLD ME I HAD A REACTION Review of Systems Review of Systems Narrative: Her review of systems were all negative except for those mentioned in the history of present illness. Patient History Medical History Cerebral aneurysm (Resolved) Cystocele (Resolved 2004) Diverticulosis of large intestine without hemorrhage (Chronic) Dysphagia (Acute) Epidural hematoma (Resolved) Essential hypertension (Chronic) History of transient cerebral ischemia (Chronic 04/29/16) Hyperlipidemia (Chronic) Mycobacterium avium complex (Chronic ~06/2015) Obstructive sleep apnea syndrome (Chronic) Osteoporosis (Chronic) Skin cancer (Resolved) Subdural hematoma (Resolved) Surgical History History of brain shunt (Resolved 05/2009) Hx of surgical procedure (Resolved 2004) S/P total abdominal hysterectomy and bilateral salpingo-oophorectomy (2004) Family History Father History of cancer Mother History of breast cancer History of colon cancer Smoker Osteoporosis Sister History of lung cancer Brother Cancer Other Family history of malignant neoplasm of breast Family history of malignant neoplasm of colon Social History household members: none Smoking Status: Former smoker Tobacco: How many years used: 7 second hand exposure: No alcohol intake: current substance use type: does not use Smoking Status: Former smoker alcohol intake frequency: holidays/special occasions only Substance Use Type: does not use Exam Narrative Exam Narrative: PHYSICAL EXAM: CONSTITUTIONAL: Awake, Alert, Oriented, Coherent, Cooperative in NAD. Does not appear toxic or ill. The patient walked to the bathroom and back from the bathroom in no acute distress without any disequilibrium or abnormal gait. HEAD: AT/NC EENT: PERRL, FROM of eyes, no discharge, no nystagmus. Visual titus are intact. No epistaxis or nasal drainage Oral mucosa is moist and pink, posterior pharynx is without erythema or exudate. NECK: Supple, no obvious JVD, Trachea is midline without stridor, no palpable LN or masses. SPINE: No gross deformity, no palpable tenderness of the cervical, thoracic, lumbar or sacral spine. No CVA tenderness. THORAX: No deformity, retractions, chest wall tenderness, subcutaneous air or crepitice. LUNGS: Clear with symmetrical breath sounds without respiratory distress HEART: Normal heart tones, regular rhythm and rate without murmur. ABDOMEN: Soft, non-tender, normal bowel sounds without guarding, rebound, rigidity or palpable mass . EXTREMITIES: No edema, cyanosis, deformity or tenderness. SKIN: No rash, bruising, petechiae or purpura. NEURO: Awake, alert, oriented, conversive, cranial nerves II-XII are symmetrical and normal, moves all 4 extremities and is ambulatory. No drift. Finger-to- nose is within normal limits. Visual titus are intact. Rapid alternating motions are within normal limits. Patient is able to oppose all of her fingers to her thumb simultaneously. There is no dysmetria. Reflexes are 2+. Sensation is symmetrical. Motor strength is symmetrical. Initial Vital Signs Initial Vital Signs: Vital Signs Temperature 97.2 F L 07/04/19 15:44 Pulse Rate 75 07/04/19 15:44 Respiratory Rate 18 07/04/19 15:44 Blood Pressure 198/94 H 07/04/19 15:44 Pulse Oximetry 100 07/04/19 15:44 Course Course Course Narrative: [address] scan revealed prior craniotomy with left-sided ventriculostomy catheter in normal position crossing the foramen Hirsch and extending into the anterior 3rd ventricle. There is no evidence of hydrocephalus nor is there any intracranial hemorrhage or bleeding per the radiologist. 1744: The patient had an IV started and she was administered a migraine cocktail consisting of 125 mg of Solu-Medrol IV, Toradol 15 mg IV based on her age, Reglan 10 mg IV, and Benadryl 25 mg IV. 1823: The patient feels much better. Her headache has not completely resolved. However her scalp in hair and scar are not sensitive or hurt. She was informed that she will be a little bit sleepy from the Benadryl. She feels well enough in improved enough to go home. She will be discharged to the lady that is in the room with her. Orders Ordered: ED Orders 07/04/19 15:55 CT head/brain wo con Stat Discontinued Medications Diphenhydramine HCl (Benadryl) 25 mg IV NOW ONE Stop: 07/04/19 17:21 Last Admin: 07/04/19 18:14 Dose: 25 mg Documented by: SINDY Ketorolac Tromethamine (Toradol) 15 mg IV NOW ONE Stop: 07/04/19 17:21 Last Admin: 07/04/19 18:08 Dose: 15 mg Documented by: SINDY Methylprednisolone (Solu-Medrol 125 Mg Vial) 125 mg IV NOW ONE Stop: 07/04/19 17:21 Last Admin: 07/04/19 18:14 Dose: 125 mg Documented by: SINDY Metoclopramide HCl (Reglan) 10 mg IV NOW ONE Stop: 07/04/19 17:21 Last Admin: 07/04/19 18:10 Dose: 10 mg Documented by: SINDY Vital Signs Vital signs: Vital Signs - 8 hr 07/04/19 15:44 07/04/19 16:17 07/04/19 17:43 Temperature 97.2 F L Pulse Rate 75 75 67 Respiratory Rate 18 14 18 Blood Pressure 198/94 H Blood Pressure [Left Arm] 198/96 H 183/97 H Pulse Oximetry 100 97 99 07/04/19 18:40 Temperature Pulse Rate 70 Respiratory Rate 18 Blood Pressure Blood Pressure [Left Arm] 158/82 H Pulse Oximetry 99 MDM - Headache Lab Data Attestation: I reviewed the patient's lab results. Discharge Plan Departure Patient Disposition: Home Clinical Impression: Headache Qualifiers: Headache type: unspecified Headache chronicity pattern: unspecified pattern Intractability: not intractable Qualified Code(s): R51 - Headache Migraine Qualifiers: Migraine type: unspecified Status migrainosus presence: without status migrainosus Intractability: not intractable Qualified Code(s): G43.909 - Migraine, unspecified, not intractable, without status migrainosus Discharge Date/Time: 07/04/19 18:43 Instructions: DI for Migraine, DI for Sinus Headache, DI for Headache Activity Restrictions/Additional Instructions: Go home rest and sleep. The Benadryl will make you sleepy. You need to follow- up with your primary care physician. If the headache gets worse or you develop any other symptoms such as disequilibrium you can return to the emergency department at any time. If you develop persistent nausea vomiting fever chills sweats dizziness passing out numbness tingling weakness of 1 side of the body or the other you need to return to the emergency department. Prescriptions: New prednisone 20 mg tablet 40 mg PO DAILY Qty: 10 RF: 0 ibuprofen 600 mg tablet 600 mg PO Q6H PRN (Reason: pain) Qty: 20 RF: 0 prochlorperazine maleate [Compazine] 10 mg tablet 10 mg PO Q6H PRN (Reason: nausea and vomiting) Qty: 10 RF: 0 No Action acetaminophen [Tylenol] 325 mg tablet 650 mg PO Q4H PRN (Reason: pain) RF: 0 multivitamin [Multiple Vitamins] 1 EACH tablet 1 tab PO DAILY Qty: 0 RF: 0 lisinopril 2.5 mg tablet 2.5 mg PO DAILY Qty: 14 RF: 0 citalopram [Celexa] 20 mg Tablet 20 mg PO DAILY RF: 0 calcium carbonate [Calcium 500] 500 mg calcium (1,250 mg) Tablet 1,000 mg PO DAILY RF: 0 lysine [L-Lysine] 500 mg Tablet 500 mg PO BID RF: 0 glucosamine-chondroitin 2,000-1,200 mg/30 mL Liquid 30 ml PO DAILY RF: 0 metoprolol succinate 50 mg tablet extended release 24 hr 25 mg PO DAILY RF: 0 Referrals: Taina Gustafson PA-C [Primary Care Provider] -
[2019-07-04 17:43] VITALS: BP 183/97; PULSE 67; RESP 18; O2SAT 99
[2019-07-04] MEDS: KETOROLAC 60 MG/2 ML VIAL 15 MG IV (18:08)
[2019-07-04] MEDS: METOCLOPRAMIDE 10 MG/2 ML INJ IV (18:10)
[2019-07-04] MEDS: methylPREDNISolone 125 MG/2 ML VIAL IV (18:14)
[2019-07-04] MEDS: diphenhydrAMINE 50 MG/ML VIAL 25 MG IV (18:14)
[2019-07-04 18:40] VITALS: BP 158/82; PULSE 70; RESP 18; O2SAT 99
== END 2019-07-04 18:43 | disposition home or self-care (01) ==
PROVIDERS: Emergency Provider Emergency Medicine; Family Provider Physician Assistant; PCP Physician Assistant
DX: G43.909 Migraine, unspecified, not intractable, without status migrainosus (principal)
CPT/HCPCS: 70450; 96374; 96375; 99283; 99284; J1200; J1885; J2765; J2930